=== PATIENT | male | born 1950 | race Caucasian/White ===

== ENCOUNTER → 2022-10-07 | Day surgery (SDC) | payer MEDICARE ==
[2022-10-01 11:07] VITALS: BMI 40.3
[~2022-10-07] MED LIST: BALANCED SALT IRRIG SOLN COMB2 15 ML IRRIG.SOLN INTRAOCULA ONE; EPINEPHrine (PF) 0.3 ML in BALANCED SALT IRRIG SOLN COMB2 500 ML IRRIGATION ONE; HYALURONATE SODIUM INTRAOCULAR 1 EACH SYRINGE (12MG/ML) INTRAOCULA ONE; LACTATED RINGERS 1,000 ML IV SCH; LIDOCAINE 1% (PF) 10MG/ML VIAL MISCELLANE ONE; MIDAZOLAM 2 MG/2 ML VIAL ONE; MOXIFLOXACIN HCL 0.5% DROPS 3 ML BTL OP PRN; TETRACAINE 0.5% OPHTH (PF) DROPS 4 ML BTL OP PRN; TIMOLOL 0.5% OPHTH DROPS 5 ML BTL OP PRN; fentaNYL (PF) 50 MCG/ML 2 ML AMP ONE
[2022-10-07] MEDS: CYCLOPENTOLATE 1% OPHTH SOLN 2 ML BTL OP PRN ×3 (06:55→07:07)
[2022-10-07] MEDS: PHENYLEPHRINE 2.5% OPHTH DRP 2ML OP PRN ×3 (06:58→07:10)
[2022-10-07 06:59] VITALS: TEMP 97
--- NOTE | 2022-10-07 08:06 | P.OP ---
Date of Procedure: 10/07/22 Preoperative Diagnosis: NS & CS & PSC Postoperative Diagnosis: same Procedure(s) Performed: PIOL, OD Implants: MX60E 18.00 Anesthesia: MAC Surgeon: Alfredo Harris Pathology: none sent Condition: stable Disposition: same day Indications for Procedure: blurry vision Operative Findings: no complications
[2022-10-07 08:54] VITALS: BP 156/80; PULSE 72; RESP 18
--- NOTE | 2022-10-07 14:50 | OP ---
OPERATIVE REPORT DATE OF SERVICE : 10/07/2022 PROCEDURES PERFORMED: Phacoemulsification of cataract and intraocular lens implant of the right eye. PREOPERATIVE DIAGNOSES: Nuclear sclerosis, cortical sclerosis, posterior subcapsular cataract. 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 ANESTHESIA: Topical. ESTIMATED BLOOD LOSS: None. SPECIMEN TAKEN: None. DESCRIPTION OF PROCEDURE: After obtaining the appropriate consent, the patient was brought to the operating room. There, he was placed under cardiac monitoring, prepped and draped in the usual sterile manner. He was approached from his right temporal side at the 11 o'clock position. An MVR blade was used to create a paracentesis port. Through this opening, 1% Xylocaine MPF 50:50 mix with balanced salt solution was injected into the anterior chamber. This was followed by stabilization of the anterior chamber with Amvisc. At the 9 o'clock position, a 2.5 mm keratome was used to create a self-sealing corneal flap incision. It was appreciated at this point that the iris was not very taut, and upon entrance of the cystotome below towards the temporal incision. I changed tactics at this point, required a 7 mm Malyugin ring, which was placed on the pupillary sphincter without difficulty. The cystotome was then advanced into the anterior chamber without any problems to begin a continuous tear capsulorrhexis, which was then, otherwise, completed using the capsular forceps. Hydrodissection and hydrodelineation of the lens were accomplished with balanced salt solution. Phacoemulsification lens utilizing phaco chop was accomplished at 17.93 seconds at 13% power. Additional Xylocaine MPF was instilled into the anterior chamber. This was followed by removal of the remaining cortical material under irrigation and aspiration as well as careful polishing of the posterior capsule in the capsule vacuum mode. Amvisc was then used to stabilize the capsular bag, and a [employer] MX60E, 18.0 diopter, posterior chamber intraocular lens was then inserted into the capsular bag without difficulty. The remaining after insertion into the capsular bag, the Malyugin ring was disinserted from the pupillary sphincter and removed from the anterior chamber. This was followed by irrigation and aspiration of all remaining viscoelastic from the anterior chamber as well as in and around the intraocular lens. The eye was then brought to normal intraocular pressure through the paracentesis port with balanced salt solution. All wounds were confirmed watertight. He then received 2 drops of 5% timolol, followed by 2 drops of 0.5% moxifloxacin. He was then lightly patched and shielded in the usual manner. There were no complications from the procedure. He tolerated the procedure well and was returned to outpatient recovery in good condition. MMODL / SHANNANN: [id number] /
== END | disposition home or self-care (01) ==
LOC: OR 06:05
PROVIDERS: ATTEND Ophthalmology
DX: H25.11 Age-related nuclear cataract, right eye (principal); H25.041 Posterior subcapsular polar age-related cataract, right eye; H25.011 Cortical age-related cataract, right eye; Z96.1 Presence of intraocular lens; I10 Essential (primary) hypertension; E78.5 Hyperlipidemia, unspecified; Z87.891 Personal history of nicotine dependence; Z79.899 Other long term (current) drug therapy
CPT/HCPCS: 66984; C1780; J2250; J0171; J3010; J2001

== ENCOUNTER 2023-03-01 11:07 | Inpatient (IN) | payer MEDICARE ==
[2023-03-01] MEDS ORDERED: DILTIAZEM DRIP BOLUS FROM BAG 1 MG SOLN IV ONE (11:28)
[2023-03-01] MEDS ORDERED: SODIUM CHLORIDE 0.9% 500 ML 500 ML IV STA (11:28)
[2023-03-01] MEDS ORDERED: HEPARIN SODIUM 1,000 UN/ML (10ML VL) IV ONE (11:29)
[2023-03-01] MEDS ORDERED: HEPARIN SOD,PORK IN 0.45% NACL 25,000 UNIT in 0.45% NACL 1 250ML.BAG IV SCH (11:30)
[2023-03-01] MEDS ORDERED: SODIUM CHLORIDE 0.9% 1,000 ML IV ONE (11:30)
[2023-03-01] MEDS ORDERED: DILTIAZEM 125 MG in SODIUM CHLORIDE 0.9% 100 ML IV SCH (11:30)
--- NOTE | 2023-03-01 11:33 | ED ---
General Adult HPI - General Chief complaint: Arrhythmia/Palpitations Stated complaint: Abn Stress Test Time Seen by Provider: 03/01/23 11:15 Source: patient, RN notes reviewed, old records reviewed Mode of arrival: ambulatory Limitations: no limitations - History of Present Illness Initial comments: This is a 73-year-old male who presents to the emergency department stating that he was upstairs having a stress test and he went into atrial fibrillation. Patient states he never diagnosis with this before. Patient states he is lightheaded and if she moves around a lot he does get short of breath. Patient states she was recently started on Lasix for fluid on his lungs and has lost 8 pounds recently. Patient states he thinks she's been in and out of A. fib in the past but has never been diagnosed. Patient denies any fever chills or cough. Patient denies any headache. Patient denies any numbness or focal weakness. Patient denies any abdominal pain patient denies any recent nausea vomiting diarrhea. - Related Data Home Medications Medication Instructions Recorded Confirmed Atorvastatin [Lipitor] 10 mg PO HS 10/01/22 03/01/23 Losartan [Cozaar] 25 mg PO DAILY 10/01/22 03/01/23 Tamsulosin [Flomax] 0.4 mg PO HS 10/01/22 03/01/23 atenoloL [Tenormin] 50 mg PO DAILY 10/01/22 03/01/23 Albuterol Sulfate [Ventolin HFA] 2 puff INHALATION RT-QID PRN 03/01/23 03/01/23 Furosemide [Lasix] 40 mg PO DAILY 03/01/23 03/01/23 predniSONE See Taper PO DIRECTED 03/01/23 03/01/23 Allergies Allergy/AdvReac Type Severity Reaction Status Date / Time No Known Allergies Allergy Verified 03/01/23 12:38 Review of Systems ROS Statement: Those systems with pertinent positive or pertinent negative responses have been documented in the HPI. ROS Other: All systems not noted in ROS Statement are negative. Past Medical History Past Medical History: Cancer, Eye Disorder, Hyperlipidemia, Hypertension, Prostate Disorder Additional Past Medical History / Comment(s): RT CATARACTS. SKIN CANCER History of Any Multi-Drug Resistant Organisms: None Reported Past Surgical History: Hernia Repair Additional Past Surgical History / Comment(s): LT CATARACT REMOVED WITH LENS IMPLANTS, REPAIR DETACHED LT RETINA, SKIN CANCER REMOVED FROM NECK, HERNIA X 2, COLONOSCOPY Past Anesthesia/Blood Transfusion Reactions: No Reported Reaction Past Psychological History: No Psychological Hx Reported Smoking Status: Former smoker Past Alcohol Use History: Rare Past Drug Use History: None Reported - Past Family History Sister(s) Family Medical History: Cancer General Exam - General Exam Comments Initial Comments: GENERAL: Patient is well-developed and well-nourished. Patient is nontoxic and well- hydrated and is mild distress. ENT: Neck is soft and supple. No significant lymphadenopathy is noted. Oropharynx is clear. Moist mucous membranes. Neck has full range of motion without eliciting any pain. EYES: The sclera were anicteric and conjunctiva were pink and moist. Extraocular movements were intact and pupils were equal round and reactive to light. Eyelids were unremarkable. PULMONARY: Unlabored respirations. Good breath sounds bilaterally. No audible rales rhonchi or wheezing was noted. CARDIOVASCULAR: Patient is tachycardic at about 140 beats a minute and it is a regular ABDOMEN: Soft and nontender with normal bowel sounds. SKIN: Skin is clear with no lesions or rashes and otherwise unremarkable. NEUROLOGIC: Patient is alert and oriented x3. Cranial nerves II through XII are grossly intact. Motor and sensory are also intact. Normal speech, volume and content. Symmetrical smile. MUSCULOSKELETAL: Normal extremities with adequate strength and full range of motion. No lower extremity swelling or edema. No calf tenderness. LYMPHATICS: No significant lymphadenopathy is noted PSYCHIATRIC: Normal psychiatric evaluation. Limitations: no limitations Course Vital Signs 03/01/23 03/01/23 03/01/23 11:08 11:18 12:15 Temperature 97.7 F Pulse Rate 60 142 H 120 H Respiratory 20 13 Rate Blood Pressure 98/63 98/77 O2 Sat by Pulse 94 L 94 L Oximetry Medical Decision Making - Medical Decision Making EKG is interpreted by myself. EKG shows atrial fibrillation with rapid ventricular response at 130 bpm QRS is 91 QT interval is 281 QTC is 362. Patient's EKG shows no ST segment elevation or depression. Was pt. sent in by a medical professional or institution (, PA, SALES SUPPORT TECHNICIAN, urgent care, hospital, or half-way...) When possible be specific @ -Dr. Dan sent the patient in Did you speak to anyone other than the patient for history (EMS, parent, family, police, friend...)? What history was obtained from this source @ -No Did you review nursing and triage notes (agree or disagree)? Why? @ -I reviewed and agree with nursing and triage notes Were old charts reviewed (outside hosp., previous admission, EMS record, old EKG, old radiological studies, urgent care reports/EKG's, half-way records)? Report findings @ -I reviewed prior charts in prior laboratory on this patient Differential Diagnosis (chest pain, altered mental status, abdominal pain women, abdominal pain men, vaginal bleeding, weakness, fever, dyspnea, syncope, headache, dizziness, GI bleed, back pain, seizure, CVA, palpatations, mental health, musculoskeletal)? @ -Differential Palpitations Ventricular arrhythmias, atrial arrhythmias, myocardial infarction, anemia, thyrotoxicosis, electrolyte imbalance, hypokalemia, pulmonary embolism, pulmonary disease, drugs, alcohol, anxiety, stress.... This is not meant to be an all-inclusive list. EKG interpreted by me (3pts min.). @ -As above X-rays interpreted by me (1pt min.). @ -Chest x-ray shows no acute abnormality CT interpreted by me (1pt min.). @ -None done U/S interpreted by me (1pt. min.). @ -None done What testing was considered but not performed or refused? (CT, X-rays, U/S, labs)? Why? @ -None What meds were considered but not given or refused? Why? @ -None Did you discuss the management of the patient with other professionals (professionals i.e. , PA, SALES SUPPORT TECHNICIAN, lab, RT, psych nurse, director social service, asset administrator, teacher, event security officer, case specialist)? Give summary @ -I spoke with Dr. Tran he agreed to admit the patient I admitted the patient and wrote admitting orders Was smoking cessation discussed for >3mins.? @ -No Was critical care preformed (if so, how long)? @ -35 minutes Were there social determinants of health that impacted care today? How? (Homelessness, low income, unemployed, alcoholism, drug addiction, transporta tion, low edu. Level, literacy, decrease access to med. care, assisted, rehab)? @ -No Was there de-escalation of care discussed even if they declined (Discuss DNR or withdrawal of care, Hospice)? DNR status @ -No What co-morbidities impacted this encounter? (DM, HTN, Smoking, COPD, CAD, Cancer, CVA, ARF, Chemo, Hep., AIDS, mental health diagnosis, sleep apnea, morbid obesity)? @ -None Was patient admitted / discharged? Hospital course, mention meds given and route, prescriptions, significant lab abnormalities, going to OR and other pertinent info. @ -Patient was started on Cardizem after Cardizem bolus and then started on heparin. Patient's heart rate came down around 110. Patient was feeling much better patient will be admitted to Dr. Tran and cardiology will be consulted. Undiagnosed new problem with uncertain prognosis? @ -No Drug Therapy requiring intensive monitoring for toxicity (Heparin, Nitro, Insulin, Cardizem)? @ -No Were any procedures done? @ -No Diagnosis/symptom? @ -A. fib with rapid ventricular response Acute, or Chronic, or Acute on Chronic? @ -Acute Uncomplicated (without systemic symptoms) or Complicated (systemic symptoms)? @ -Complicated Side effects of treatment? @ -No Exacerbation, Progression, or Severe Exacerbation? @ -No Poses a threat to life or bodily function? How? (Chest pain, [place], [place], pneumonia, PE, COPD, DKA, ARF, appy, cholecystitis, CVA, Diverticulitis, Homicidal, Suicidal, threat to staff... and all critical care pts) @ -Yes this can lead to poor perfusion and an organ dysfunction - Lab Data Result diagrams: 03/01/23 11:36 03/01/23 11:36 Lab Results 03/01/23 03/01/23 03/01/23 Range/Units 11:36 11:36 11:36 WBC 14.1 H (3.8-10.6) k/uL RBC 5.51 (4.30-5.90) m/uL Hgb 17.0 (13.0-17.5) gm/dL Hct 53.3 H (39.0-53.0) % MCV 96.8 (80.0-100.0) fL MCH 30.9 (25.0-35.0) pg MCHC 32.0 (31.0-37.0) g/dL RDW 12.5 (11.5-15.5) % Plt Count 227 (150-450) k/uL MPV 8.3 Neutrophils % 94 % Lymphocytes % 4 % Monocytes % 2 % Eosinophils % 0 % Basophils % 0 % Neutrophils # 13.1 H (1.3-7.7) k/uL Lymphocytes # 0.6 L (1.0-4.8) k/uL Monocytes # 0.2 (0-1.0) k/uL Eosinophils # 0.0 (0-0.7) k/uL Basophils # 0.0 (0-0.2) k/uL PT 10.8 (10.0-12.5) sec INR 1.0 (<1.2) APTT 22.4 (22.0-30.0) sec Sodium 140 (137-145) mmol/L Potassium 4.8 (3.5-5.1) mmol/L Chloride 103 (98-107) mmol/L Carbon Dioxide 27 (22-30) mmol/L Anion Gap 10 mmol/L BUN 47 H (9-20) mg/dL Creatinine 1.18 (0.66-1.25) mg/dL Est GFR (CKD-EPI)AfAm 71 (>60 ml/min/1.73 sqM) Est GFR (CKD-EPI)NonAf 61 (>60 ml/min/1.73 sqM) Glucose 148 H (74-99) mg/dL Calcium 9.6 (8.4-10.2) mg/dL Magnesium 1.8 (1.6-2.3) mg/dL Total Bilirubin 0.6 (0.2-1.3) mg/dL AST 28 (17-59) U/L ALT 44 (4-49) U/L Alkaline Phosphatase 66 (38-126) U/L Troponin I (0.000-0.034) ng/mL NT-Pro-B Natriuret Pep 363 pg/mL Total Protein 6.7 (6.3-8.2) g/dL Albumin 4.1 (3.5-5.0) g/dL TSH 1.530 (0.465-4.680) mIU/L Urine Opiates Screen (NotDetected) Ur Oxycodone Screen (NotDetected) Urine Methadone Screen (NotDetected) Ur Barbiturates Screen (NotDetected) U Tricyclic Antidepress (NotDetected) Ur Phencyclidine Scrn (NotDetected) Ur Amphetamines Screen (NotDetected) U Methamphetamines Scrn (NotDetected) U Benzodiazepines Scrn (NotDetected) Urine Cocaine Screen (NotDetected) U Marijuana (THC) Screen (NotDetected) 03/01/23 03/01/23 Range/Units 11:36 11:36 WBC (3.8-10.6) k/uL RBC (4.30-5.90) m/uL Hgb (13.0-17.5) gm/dL Hct (39.0-53.0) % MCV (80.0-100.0) fL MCH (25.0-35.0) pg MCHC (31.0-37.0) g/dL RDW (11.5-15.5) % Plt Count (150-450) k/uL MPV Neutrophils % % Lymphocytes % % Monocytes % % Eosinophils % % Basophils % % Neutrophils # (1.3-7.7) k/uL Lymphocytes # (1.0-4.8) k/uL Monocytes # (0-1.0) k/uL Eosinophils # (0-0.7) k/uL Basophils # (0-0.2) k/uL PT (10.0-12.5) sec INR (<1.2) APTT (22.0-30.0) sec Sodium (137-145) mmol/L Potassium (3.5-5.1) mmol/L Chloride (98-107) mmol/L Carbon Dioxide (22-30) mmol/L Anion Gap mmol/L BUN (9-20) mg/dL Creatinine (0.66-1.25) mg/dL Est GFR (CKD-EPI)AfAm (>60 ml/min/1.73 sqM) Est GFR (CKD-EPI)NonAf (>60 ml/min/1.73 sqM) Glucose (74-99) mg/dL Calcium (8.4-10.2) mg/dL Magnesium (1.6-2.3) mg/dL Total Bilirubin (0.2-1.3) mg/dL AST (17-59) U/L ALT (4-49) U/L Alkaline Phosphatase (38-126) U/L Troponin I <0.012 (0.000-0.034) ng/mL NT-Pro-B Natriuret Pep pg/mL Total Protein (6.3-8.2) g/dL Albumin (3.5-5.0) g/dL TSH (0.465-4.680) mIU/L Urine Opiates Screen Not Detected (NotDetected) Ur Oxycodone Screen Not Detected (NotDetected) Urine Methadone Screen Not Detected (NotDetected) Ur Barbiturates Screen Not Detected (NotDetected) U Tricyclic Antidepress Not Detected (NotDetected) Ur Phencyclidine Scrn Not Detected (NotDetected) Ur Amphetamines Screen Not Detected (NotDetected) U Methamphetamines Scrn Not Detected (NotDetected) U Benzodiazepines Scrn Not Detected (NotDetected) Urine Cocaine Screen Not Detected (NotDetected) U Marijuana (THC) Screen Not Detected (NotDetected) Critical Care Time Critical Care Time: Yes Total Critical Care Time: 35 Disposition Clinical Impression: Atrial fibrillation with rapid ventricular response Disposition: ADMITTED IP TO THIS HOSP Referrals: Jose Luis Mix DO [Primary Care Provider] - 1-2 days Time of Disposition: 13:07
[2023-03-01 12:05] LABS: Basophils % (A) 0 %; Eosinophils % (A) 0 %; HCT 53.3 % (39.0-53.0); Lymphocytes # (A) 0.6 k/uL (1.0-4.8); Lymphocytes % (A) 4 %; MCH 30.9 pg (25.0-35.0); MCV 96.8 fL (80.0-100.0); Mean Platelet Volume 8.3; Monocytes # (A) 0.2 k/uL (0-1.0); Monocytes % (A) 2 %; Neutrophils # (A) 13.1 k/uL (1.3-7.7); Neutrophils % (A) 94 %; Platelet Count 227 k/uL (150-450); RBC 5.51 m/uL (4.30-5.90); RDW 12.5 % (11.5-15.5); WBC 14.1 k/uL (3.8-10.6)
--- NOTE | 2023-03-01 12:05 | XR ---
EXAMINATION TYPE: XR chest 2V DATE OF EXAM: 03/01/2023 COMPARISON: None HISTORY: 73-year-old male with dysrhythmia, abnormal stress test TECHNIQUE: Frontal and lateral views FINDINGS: Heart upper limits of normal in size. Hyperinflation. Focal lower lung densities likely relates to ov erlying soft tissue. Otherwise, no consolidation or pleural effusion. IMPRESSION: Cardiomegaly and COPD. Lower lung opacities likely related to overlying soft tissue. Otherwise, no de finite acute process.
[2023-03-01 12:21] LABS: ALT 44 U/L (4-49); AST 28 U/L (17-59); African American GFR (CKD) 71 (>60 ml/min/1.73 sqM); Albumin 4.1 g/dL (3.5-5.0); Alkaline Phosphatase 66 U/L (38-126); Anion Gap 10 mmol/L; Blood Urea Nitrogen 47 mg/dL (9-20); Calcium 9.6 mg/dL (8.4-10.2); Carbon Dioxide 27 mmol/L (22-30); Chloride 103 mmol/L (98-107); Glucose 148 mg/dL (74-99); Magnesium 1.8 mg/dL (1.6-2.3); Non-African American GFR(CKD) 61 (>60 ml/min/1.73 sqM); Potassium 4.8 mmol/L (3.5-5.1); Sodium 140 mmol/L (137-145); Total Bilirubin 0.6 mg/dL (0.2-1.3); Total Protein 6.7 g/dL (6.3-8.2)
[2023-03-01 12:24] LABS: Partial Thromboplastin Time 22.4 sec (22.0-30.0); Prothrombin Time 10.8 sec (10.0-12.5)
[2023-03-01 12:28] LABS: NT-Pro-B-Type Natriuretic Pept 363 pg/mL
[2023-03-01 12:33] LABS: Amphetamine Screen,Urine Not Detected (NotDetected); Barbiturate Screen,Urine Not Detected (NotDetected); Benzodiazepines Screen,Urine Not Detected (NotDetected); Cocaine Screen,Urine Not Detected (NotDetected); Methadone Screen, Urine Not Detected (NotDetected); Opiate Screen,Urine Not Detected (NotDetected); Oxycodone Screen, Urine Not Detected (NotDetected); Phencyclidine Screen,Urine Not Detected (NotDetected); Tricyclic Antidepressant,Urine Not Detected (NotDetected); Urn Cannabinoid Scrn Not Detected (NotDetected)
[2023-03-01] MEDS ORDERED: NITROGLYCERIN SL TABS 0.4 MG TAB SUBLINGUAL PRN (13:07)
[2023-03-01] MEDS ORDERED: ALBUTEROL HFA INHALER INHALATION PRN (18:27)
[2023-03-01 19:20] LABS: Partial Thromboplastin Time 35.7 sec (22.0-30.0)
--- NOTE | 2023-03-01 20:04 | CT ---
EXAMINATION TYPE: CT chest wo con CT DLP: 812.2 mGycm, Automated exposure control for dose reduction was used. DATE OF EXAM: 03/01/2023 7:11 PM COMPARISON: Chest radiograph from same day. . CLINICAL INDICATION:Male, 73 years old with history of cap; PHH, Abnormal stress test. Pt in A-fib. TECHNIQUE: Multiple axial images were obtained through the chest. Sagittal and coronal reformats were created for review. Contrast used: mL of (None if empty) Oral contrast used: (None if empty) FINDINGS: LUNGS/ PLEURA: No focal consolidation, pneumothorax or pleural effusion. AIRWAY: Patent and unremarkable. HEART: Size within normal limits. Mild calcifications of the coronary arteries. MEDIASTINUM: No gross evidence of adenopathy. VASCULATURE: No aortic aneurysm. MUSCULOSKELETAL: No acute osseous abnormalities SOFT TISSUES/LYMPH NODES: Unremarkable. LOWER NECK: No significant findings. UPPER ABDOMEN: No significant findings. IMPRESSION: 1. No evidence for acute thoracic process. 2. Mild coronary artery atherosclerosis. Follow up recommendations for incidental pulmonary nodules, if there are any, are per [employer] [employer] or [place]. https://radiopaedia.org/articles/cjmhxomwul-atigema-wsdmhpjyg-hbogor-[email or web address]-[email or web address]?lang=us
[2023-03-01] MEDS: ATORVASTATIN 10 MG TAB PO SCH (22:00)
[2023-03-01] MEDS: TAMSULOSIN 0.4 MG CAP.ER.24H PO SCH (22:00)
[2023-03-01] MEDS: IPRATROPIUM-ALBUTEROL 3 ML NEB INHALATION SCH (22:13)
[2023-03-01] MEDS ORDERED: ARTIFICIAL TEARS-HYPROMELLOSE DROPS 15 ML BTL BOTH EYES PRN (22:39)
--- NOTE | 2023-03-02 01:52 | HP ---
HISTORY AND PHYSICAL HISTORY OF PRESENT ILLNESS: This is a 73-year-old in the emergency room having assessed for atrial fibrillation. He is lightheaded, moves around a lot, he is short of breath. He is given Lasix for fluid in his lungs. He lost 3 pounds recently. He has been in and out of atrial fibrillation in the past. No fever or chills. No headaches. No numbness or focal weakness. No abdominal pain. No nausea, vomiting, or diarrhea. MEDICATIONS: 1. Lipitor 10 daily. 2. Cozaar 25 daily. 3. Flomax 0.4 daily. 4. Advair HFA 2 puffs p.r.n. 5. Tenormin 50 daily. 6. Lasix 40 daily. 7. Prednisone as tolerated. ALLERGIES: Negative. PAST MEDICAL HISTORY: Cancer, eye disorder, hypertension, dyslipidemia, and prostate disorder. PAST SURGICAL HISTORY: Hernia repair, cataract removed, skin cancer removed. FAMILY HISTORY: Sister cancer. PHYSICAL EXAMINATION: HEENT: Normocephalic, atraumatic. Ophthalmologic, pupils equal, round, and react to light. LUNGS: Decreased breath sounds x4. HEMATOLOGY: Negative for Homans. PSYCH: Fair mood and affect. NEUROLOGIC: Alert and oriented x3. ABDOMEN: Soft, nontender. SKIN: Warm and dry. VITAL SIGNS: Reviewed. Blood pressure 98/63, temp 97.7, pulse 60, respiratory rate 18 to 20, and O2 94. LYMPHATICS: No lymphadenopathy. ASSESSMENT: Atrial fibrillation, RVR, probable COPD, hypertension, BPH, dyslipidemia. Prognosis guarded. Please see further orders. Cardizem bolus, heparin drip. Wait for Cardiology consult. Further workup in place. Leukocytosis, possible pneumonia. He has secondary polycythemia, will work that up also. Prognosis guarded. MMODL / IJN: [id number] /
[2023-03-02 05:07] LABS: Basophils # (A) 0.1 k/uL (0-0.2); Basophils % (A) 0 %; Eosinophils # (A) 0.1 k/uL (0-0.7); Eosinophils % (A) 0 %; HCT 50.2 % (39.0-53.0); HGB 16.4 gm/dL (13.0-17.5); Lymphocytes # (A) 2.1 k/uL (1.0-4.8); Lymphocytes % (A) 16 %; MCH 31.7 pg (25.0-35.0); MCHC 32.6 g/dL (31.0-37.0); MCV 97.1 fL (80.0-100.0); Mean Platelet Volume 8.6; Monocytes # (A) 0.7 k/uL (0-1.0); Monocytes % (A) 5 %; Neutrophils # (A) 9.9 k/uL (1.3-7.7); Neutrophils % (A) 77 %; Platelet Count 184 k/uL (150-450); RBC 5.17 m/uL (4.30-5.90); RDW 12.6 % (11.5-15.5); WBC 12.8 k/uL (3.8-10.6)
[2023-03-02 05:18] LABS: ALT 36 U/L (4-49); AST 21 U/L (17-59); African American GFR (CKD) 87 (>60 ml/min/1.73 sqM); Albumin 3.7 g/dL (3.5-5.0); Alkaline Phosphatase 69 U/L (38-126); Anion Gap 6 mmol/L; Blood Urea Nitrogen 38 mg/dL (9-20); Calcium 8.9 mg/dL (8.4-10.2); Carbon Dioxide 27 mmol/L (22-30); Chloride 104 mmol/L (98-107); Glucose 109 mg/dL (74-99); Non-African American GFR(CKD) 75 (>60 ml/min/1.73 sqM); Potassium 4.3 mmol/L (3.5-5.1); Sodium 137 mmol/L (137-145); Total Bilirubin 0.7 mg/dL (0.2-1.3); Total Protein 6.1 g/dL (6.3-8.2)
[2023-03-02] MEDS: IPRATROPIUM-ALBUTEROL 3 ML NEB INHALATION SCH ×4 (08:16→21:36)
[2023-03-02] MEDS ORDERED: ASPIRIN 325 MG TAB PO SCH (09:00)
[2023-03-02] MEDS ORDERED: APIXABAN 5 MG TAB PO SCH (09:00)
[2023-03-02] MEDS ORDERED: atenoloL 50 MG TAB PO SCH (09:00)
[2023-03-02] MEDS: LOSARTAN 25 MG TAB PO SCH (09:27)
[2023-03-02] MEDS: METOPROLOL TARTRATE 50 MG TAB PO SCH ×2 (09:28→20:34)
[2023-03-02] MEDS ORDERED: NITROGLYCERIN SL TABS 0.4 MG TAB SUBLINGUAL PRN (10:19)
[2023-03-02] MEDS ORDERED: ALPRAZolam 0.5 MG TAB PO PRN (10:19)
[2023-03-02] MEDS ORDERED: ALPRAZolam 0.25 MG TAB PO PRN (10:19)
[2023-03-02 10:39] LABS: Chol/HDL Ratio 3.31 Ratio; LDL Cholesterol,Calculated 98.4 mg/dL (0.0-131.0)
--- NOTE | 2023-03-02 13:25 | P.CRDCN ---
History of Present Illness Consult date: 03/02/23 Consult reason: atrial fibrillation (w RVR) History of present illness: History of present illness: This is a 73-year-old male with past medical history of hypertension, hyperlipidemia, history of tobacco use quit in June 2022. 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 fib with RVR. Patient presented to the emergency center for a stress test and after it was completed, patient went into atrial fibrillation. He has no previous history of atrial fibrillation. He was initially lightheaded and short of breath was recently started on Lasix with loss of 8 pounds. Patient states he has not been feeling will with increased shortness of breath since [place]. For the past year he has not been able to walk any long distance and felt palpatations. He states that even now when he lays down he feels palpitations in his chest and shortness of breath. He states he has a [facility] with atrial fibrillation and ablations. Patient has started on Cardizem bolus followed by drip and heparin drip, 1 L of IV fluids and resumed on his home cardiac medications to start today. Cardizem drip is currently at 5 mg per hour. Discussed anticoagulation options with the patient and he is agreeable to start eliquis. However, following that discussion, patient's EF came back low and he will be scheduled for cardiac catheterization tomorrow morning with Dr. Barajas. Patient would like to follow in the office with Dr. Dan as he met him yesterday during stress testing. Patient has a history of smoking and quit a number of years ago. Rare alcohol use. He denies any marijuana or illicit drug use. Discussed obstructive sleep apnea and patient will need outpatient workup. EKG atrial fibrillation with ventricular rate of 138. Repeat atrial fibrillation at ventricular rate of 81. Chest x-ray: Cardiomegaly and COPD. Lower lung opacities likely related to over lying soft tissue. No acute process. CT of the chest: No evidence of acute thoracic process. Mild coronary artery atherosclerosis. Pulmonary nodules. WBC 12.8, hemoglobin 16.4, platelet count 184. INR 1. D-dimer 0.57. A 2 lites are normal. BUN 38 creatinine 1. Troponin negative 3. ProBNP 363. TSH 1.53. Urine drug screen negative. Home cardiac medications: Atenolol 59 g daily, atorvastatin 10 mg at bedtime, Lasix 40 mg daily, losartan 25 mg daily. Review Of Systems: At the time of my exam: CONSTITUTIONAL: Denies fever or chills. CARDIOVASCULAR: Denies chest pain, + shortness of breath, + MANUEL, no orthopnea, PND or palpitations. RESPIRATORY: Denies cough. GASTROINTESTINAL: Denies abdominal pain, diarrhea, constipation, nausea or vomiting. MUSCULOSKELETAL: Denies myalgias. NEUROLOGIC: Denies numbness, tingling or weakness. ENDOCRINE: Denies fatigue, weight change, polydipsia or polyurina. GENITOURINARY: Denies burning, hematuria or urgency with micturation. HEMATOLOGIC: Denies history of anemia or bleeding. Physical examination: Gen: This is a 73-year-old male resting in bed, no acute distress VS: reviewed HEENT: Head is atraumatic, normocephalic. Pupils equal, round. Sclerae is anicteric. NECK: Supple. No JVD. LUNGS: Clear to auscultation. No wheezes or rhonchi. No intercostal retractions. HEART: Regular rate and rhythm. No murmur. ABDOMEN: Soft No tenderness. EXTREMITIES: No pedal edema. No calf tenderness. NEUROLOGICAL: Patient is awake, alert and oriented x3. 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 Nurse practitioner note has been reviewed, I agree with documented findings and plan of care. Patient was seen and examined. Past Medical History Past Medical History: Cancer, Eye Disorder, Hyperlipidemia, Hypertension, Prostate Disorder Additional Past Medical History / Comment(s): RT CATARACTS. SKIN CANCER History of Any Multi-Drug Resistant Organisms: None Reported Past Surgical History: Hernia Repair Additional Past Surgical History / Comment(s): LT CATARACT REMOVED WITH LENS IMPLANTS, REPAIR DETACHED LT RETINA, SKIN CANCER REMOVED FROM NECK, HERNIA X 2, COLONOSCOPY Past Anesthesia/Blood Transfusion Reactions: No Reported Reaction Past Psychological History: No Psychological Hx Reported Smoking Status: Former smoker Past Alcohol Use History: Rare Additional Past Alcohol Use History / Comment(s): QUIT SMOKING JUNE 2022-SMOKING OFF AND ON SINCE AGE 16 Past Drug Use History: None Reported - Past Family History Sister(s) Family Medical History: Cancer Medications and Allergies Home Medications Medication Instructions Recorded Confirmed Type Atorvastatin [Lipitor] 10 mg PO HS 10/01/22 03/01/23 History Losartan [Cozaar] 25 mg PO DAILY 10/01/22 03/01/23 History Tamsulosin [Flomax] 0.4 mg PO HS 10/01/22 03/01/23 History atenoloL [Tenormin] 50 mg PO DAILY 10/01/22 03/01/23 History Albuterol Sulfate [Ventolin HFA] 2 puff INHALATION RT-QID PRN 03/01/23 03/01/23 History Furosemide [Lasix] 40 mg PO DAILY 03/01/23 03/01/23 History predniSONE See Taper PO DIRECTED 03/01/23 03/01/23 History Apixaban [Eliquis] 5 mg PO BID #60 tab 03/02/23 Rx Allergies Allergy/AdvReac Type Severity Reaction Status Date / Time No Known Allergies Allergy Verified 03/01/23 12:38 Physical Exam Vitals: Vital Signs Temp Pulse Pulse Resp BP BP Pulse Ox 03/02/23 04:21 97.5 F L 66 16 122/79 94 L 03/02/23 00:07 97.6 F 69 16 125/77 95 03/01/23 20:46 97.6 F 74 16 116/66 94 L 03/01/23 19:00 90 18 109/79 93 L 03/01/23 18:00 90 17 109/79 94 L 03/01/23 17:00 86 13 106/77 93 L 03/01/23 16:00 89 18 106/77 94 L 03/01/23 14:00 94 20 105/71 94 L 03/01/23 13:00 105 H 18 121/77 94 L 03/01/23 12:15 120 H 13 98/77 94 L 03/01/23 11:18 142 H 03/01/23 11:08 97.7 F 60 20 98/63 94 L Intake and Output 0103/02/23 03/02/23 22:59 06:59 14:59 Intake Total 104.823 Balance 104.823 Intake: Intake, IV Titration 104.823 Amount Heparin Sod,Pork in 0.45% 104.823 NaCl 25,000 unit In 0.45 % NaCl 1 250ml.bag @ 8. 818 UNITS/KG/HR 9.999 mls /hr IV .Q24H [facility] Rx#: [id number] Other: # Voids 0 1 Weight 113.398 kg 112.6 kg Results 03/02/23 04:33 03/02/23 04:33 Cardiac Enzymes 03/01/23 03/01/23 03/01/23 Range/Units 11:36 11:36 14:27 AST 28 (17-59) U/L Troponin I <0.012 0.016 (0.000-0.034) ng/mL 03/01/23 03/02/23 Range/Units 17:00 04:33 AST 21 (17-59) U/L Troponin I 0.018 (0.000-0.034) ng/mL Coagulation 03/01/23 03/01/23 03/02/23 Range/Units 11:36 18:40 04:33 PT 10.8 (10.0-12.5) sec APTT 22.4 35.7 H 47.4 H (22.0-30.0) sec CBC 03/01/23 03/02/23 Range/Units 11:36 04:33 WBC 14.1 H 12.8 H (3.8-10.6) k/uL RBC 5.51 5.17 (4.30-5.90) m/uL Hgb 17.0 16.4 (13.0-17.5) gm/dL Hct 53.3 H 50.2 (39.0-53.0) % Plt Count 227 184 (150-450) k/uL Comprehensive Metabolic Panel 03/01/23 03/02/23 Range/Units 11:36 04:33 Sodium 140 137 (137-145) mmol/L Potassium 4.8 4.3 (3.5-5.1) mmol/L Chloride 103 104 (98-107) mmol/L Carbon Dioxide 27 27 (22-30) mmol/L BUN 47 H 38 H (9-20) mg/dL Creatinine 1.18 1.00 (0.66-1.25) mg/dL Glucose 148 H 109 H (74-99) mg/dL Calcium 9.6 8.9 (8.4-10.2) mg/dL AST 28 21 (17-59) U/L ALT 44 36 (4-49) U/L Alkaline Phosphatase 66 69 (38-126) U/L Total Protein 6.7 6.1 L (6.3-8.2) g/dL Albumin 4.1 3.7 (3.5-5.0) g/dL Current Medications Generic Name Dose Route Start Last Admin Trade Name Freq PRN Reason Stop Dose Admin Albuterol Sulfate 2 puff 03/01/23 18:27 Albuterol Hfa Inhaler INHALATION RT-QID PRN Shortness Of Breath Albuterol/Ipratropium 3 ml 03/01/23 20:00 03/01/23 22:13 Ipratropium-Albuterol 3 Ml Neb INHALATION Not Given RT-QID [facility] Artificial Tears 1 drops 03/01/23 22:39 Artificial Tears-Hypromellose Drops 15 Ml Btl BOTH EYES QID PRN Dry Eye(s) Aspirin 325 mg 03/02/23 09:00 Aspirin 325 Mg Tab PO DAILY [facility] Atenolol 50 mg 03/02/23 09:00 Atenolol 50 Mg Tab PO DAILY [facility] Atorvastatin Calcium 10 mg 03/01/23 21:00 03/01/23 22:00 Atorvastatin 10 Mg Tab PO 10 mg HS [facility] Administration Diltiazem HCl 125 mg/ Sodium 125 mls @ 5 mls/hr 03/01/23 11:30 03/01/23 11:56 Chloride IV 5 mg/hr .Q24H [facility] 5 mls/hr Administration 5 MG/HR Heparin Sodium/Sodium Chloride 250 mls @ 9.999 mls/hr 03/01/23 11:30 03/01/23 22:25 25,000 unit/ Sodium Chloride IV 10.818 units/kg/hr .Q24H [facility] 12.267 mls/hr Titration Protocol 8.818 UNITS/KG/HR Ceftriaxone Sodium 1 gm/ 50 mls @ 100 mls/hr 03/01/23 19:00 03/02/23 00:12 Sodium Chloride IVPB 100 mls/hr Q24HR [facility] Administration Protocol Losartan Potassium 25 mg 03/02/23 09:00 Losartan 25 Mg Tab PO DAILY [facility] Nitroglycerin 0.4 mg 03/01/23 13:07 Nitroglycerin Sl Tabs 0.4 Mg Tab SUBLINGUAL Q5M PRN Chest Pain Tamsulosin HCl 0.4 mg 03/01/23 21:00 03/01/23 22:00 Tamsulosin 0.4 Mg Cap.Er.24h PO 0.4 mg HS [facility] Administration Intake and Output 03/01/23 03/02/23 03/02/23 22:59 06:59 14:59 Intake Total 104.823 Balance 104.823 Intake: Intake, IV Titration 104.823 Amount Heparin Sod,Pork in 0.45% 104.823 NaCl 25,000 unit In 0.45 % NaCl 1 250ml.bag @ 8. 818 UNITS/KG/HR 9.999 mls /hr IV .Q24H [facility] Rx#: [id number] Other: # Voids 0 1 Weight 113.398 kg 112.6 kg 03/02/23 04:33 03/02/23 04:33
[2023-03-02] MEDS: ATORVASTATIN 10 MG TAB PO SCH (20:34)
[2023-03-02] MEDS: TAMSULOSIN 0.4 MG CAP.ER.24H PO SCH (20:34)
--- NOTE | 2023-03-02 22:28 | P.CONS ---
History of Present Illness - Reason for Consult Consult date: 03/02/23 Sepsis Requesting physician: Fortino Tran - Chief Complaint Lightheaded and short of breath x 1 day - History of Present Illness Patient is a 73-year old male apparently seem to have a problem with the URI/lower chest infection for the patient has been evaluated by his primary care physician and has been given some intramuscular antibiotic followed by a 5-day course of oral antibiotic patient medically clear about the name and has been on a tapering course of prednisone, patient also have a history of hypertension hyperlipidemia and apparently patient was undergoing stress test after completion of the test the patient went into atrial fibrillation patient felt lightheaded and short of breath for the patient was advised to go to the ER patient denies having any fever or any chills prior to presentation to the hospital and no fever was noticed on arrival to the ER the patient was tachycardic but not hypotensive or hypoxic patient did have a elevated white count of 14.1 with a left shift creatinine was normal liver enzymes are normal urine drug screen was negative patient did have a chest x-ray cardiomegaly COPD lower lung opacity likely related to ongoing soft tissue otherwise no acute process subsequently patient did have a CT of the chest no evidence for acute thoracic process mild coronary arteries atherosclerosis patient was started on c eftriaxone empirically infectious was consulted for possible sepsis/leukocytosis. Patient currently denies any headache or URI symptoms the patient breathing has improved denies any chest pain did have occasional dry cough no nausea no vomiting no abdominal pain no diarrhea no urinary symptoms Review of Systems Positive point and negatives has been mentioned in the HPI, complete review of systems was performed and all other systems are negative Past Medical History Past Medical History: Cancer, Eye Disorder, Hyperlipidemia, Hypertension, Prostate Disorder Additional Past Medical History / Comment(s): RT CATARACTS. SKIN CANCER History of Any Multi-Drug Resistant Organisms: None Reported Past Surgical History: Hernia Repair Additional Past Surgical History / Comment(s): LT CATARACT REMOVED WITH LENS IMPLANTS, REPAIR DETACHED LT RETINA, SKIN CANCER REMOVED FROM NECK, HERNIA X 2, COLONOSCOPY Past Anesthesia/Blood Transfusion Reactions: No Reported Reaction Past Psychological History: No Psychological Hx Reported Smoking Status: Former smoker Past Alcohol Use History: Rare Additional Past Alcohol Use History / Comment(s): QUIT SMOKING JUNE 2022-SMOKING OFF AND ON SINCE AGE 16 Past Drug Use History: None Reported - Past Family History Sister(s) Family Medical History: Cancer Medications and Allergies Home Medications Medication Instructions Recorded Confirmed Type Losartan [Cozaar] 25 mg PO DAILY 10/01/22 03/01/23 History Tamsulosin [Flomax] 0.4 mg PO HS 10/01/22 03/01/23 History Albuterol Sulfate [Ventolin HFA] 2 puff INHALATION RT-QID PRN 03/01/23 03/01/23 History predniSONE See Taper PO DIRECTED 03/01/23 03/01/23 History Apixaban [Eliquis] 5 mg PO BID #180 tab 03/04/23 Rx Atorvastatin [Lipitor] 40 mg PO HS #90 tablet 03/04/23 Rx Clopidogrel [Plavix] 75 mg PO DAILY #90 tablet 03/04/23 Rx Metoprolol Tartrate [Lopressor] 50 mg PO BID 30 Days #60 tab 03/04/23 Rx Allergies Allergy/AdvReac Type Severity Reaction Status Date / Time No Known Allergies Allergy Verified 03/01/23 12:38 Physical Exam Vitals: Vital Signs Temp Pulse Pulse Resp BP BP Pulse Ox 03/02/23 09:00 98.1 F 82 147/70 92 L 03/02/23 08:26 86 03/02/23 08:16 80 93 L 03/02/23 04:21 97.5 F L 66 16 122/79 94 L 03/02/23 00:07 97.6 F 69 16 125/77 95 03/01/23 20:46 97.6 F 74 16 116/66 94 L 03/01/23 19:00 90 18 109/79 93 L 03/01/23 18:00 90 17 109/79 94 L 03/01/23 17:00 86 13 106/77 93 L 03/01/23 16:00 89 18 106/77 94 L 03/01/23 14:00 94 20 105/71 94 L 03/01/23 13:00 105 H 18 121/77 94 L 03/01/23 12:15 120 H 13 98/77 94 L 03/01/23 11:18 142 H 03/01/23 11:08 97.7 F 60 20 98/63 94 L Intake and Output 03/01/23 03/02/23 03/02/23 22:59 06:59 14:59 Intake Total 104.823 370.927 Balance 104.823 370.927 Intake: Intake, IV Titration 104.823 252.927 Amount Diltiazem 125 mg In 107.75 Sodium Chloride 0.9% 100 ml @ 5 MG/HR 5 mls/hr IV .Q24H [facility] Rx#:[id number] Heparin Sod,Pork in 0.45% 104.823 145.177 NaCl 25,000 unit In 0.45 % NaCl 1 250ml.bag @ 8. 818 UNITS/KG/HR 9.999 mls /hr IV .Q24H [facility] Rx#: [id number] Oral 118 Other: # Voids 0 1 Weight 113.398 kg 112.6 kg GENERAL DESCRIPTION: elderly male lying in bed, no distress. No tachypnea or accessory muscle of respiration use. HEENT: Shows Pallor , no scleral icterus. Oral mucous membrane is dry. No pharyngeal erythema or thrush NECK: Trachea central, no thyromegaly. LUNGS: Unlabored breathing. Clear to auscultation anteriorly. No wheeze or crackle. HEART: S1, S2, regular rate and rhythm. No loud murmur ABDOMEN: Soft, no tenderness , guarding or rigidity, no organomegaly EXTREMITIES: No edema of feet. SKIN: No rash, no masses palpable. NEUROLOGICAL: The patient is awake, alert, oriented x3, mood and affect normal. Results CBC & Chem 7: 03/03/23 07:54 03/04/23 08:10 Labs: Abnormal Lab Results - Last 24 Hours (Table) 03/01/23 03/01/23 03/01/23 Range/Units 11:36 11:36 11:36 WBC 14.1 H (3.8-10.6) k/uL Hct 53.3 H (39.0-53.0) % Neutrophils # 13.1 H (1.3-7.7) k/uL Lymphocytes # 0.6 L (1.0-4.8) k/uL APTT (22.0-30.0) sec BUN 47 H (9-20) mg/dL Glucose 148 H (74-99) mg/dL Hemoglobin A1c 6.7 H (<=6.0) % Total Protein (6.3-8.2) g/dL 03/01/23 03/02/23 03/02/23 Range/Units 18:40 04:33 04:33 WBC 12.8 H (3.8-10.6) k/uL Hct (39.0-53.0) % Neutrophils # 9.9 H (1.3-7.7) k/uL Lymphocytes # (1.0-4.8) k/uL APTT 35.7 H (22.0-30.0) sec BUN 38 H (9-20) mg/dL Glucose 109 H (74-99) mg/dL Hemoglobin A1c (<=6.0) % Total Protein 6.1 L (6.3-8.2) g/dL 03/02/23 Range/Units 04:33 WBC (3.8-10.6) k/uL Hct (39.0-53.0) % Neutrophils # (1.3-7.7) k/uL Lymphocytes # (1.0-4.8) k/uL APTT 47.4 H (22.0-30.0) sec BUN (9-20) mg/dL Glucose (74-99) mg/dL Hemoglobin A1c (<=6.0) % Total Protein (6.3-8.2) g/dL Assessment and Plan (1) Leukocytosis Status: Acute Code(s): D72.829 - ELEVATED WHITE BLOOD CELL COUNT, UNSPECIFIED SNOMED Code(s): 177993294 Plan: 1patient with leukocytosis more likely related to steroid the patient has been out in the outpatient setting for bronchitis prescribed by his primary care physician patient admitted to the hospital with A-fib after the stress test currently with no fever patient did have a chest x-ray followed by CT of the chest that was negative for any pneumonia he does not have any urinary symptoms abdominal soft on clinical examination and no evidence of any cellulitis 2-we will check his inflammatory markers patient CRP and procalcitonin 3-May continue empiric Rocephin while waiting for the workup to be completed We will follow on clinical condition and cultures to further adjust medication if needed Thank you for this consultation we will follow the patient along with you Dictation was produced using [employer] software. please excuse any grammatical, word or spelling errors. Time with Patient: Greater than 30
[2023-03-02] MEDS ORDERED: EMPTY BAG 1 BAG with SODIUM CHLORIDE 0.9% 1,000 ML IV ONE (23:00)
[2023-03-03 05:49] LABS: Glucose,Whole Blood 94 mg/dL (70-110)
[2023-03-03] MEDS: METOPROLOL TARTRATE 50 MG TAB PO SCH ×2 (06:11→20:57)
[2023-03-03] MEDS: LOSARTAN 25 MG TAB PO SCH (06:12)
[2023-03-03] MEDS ORDERED: HEPARIN SODIUM,PORCINE (1 ML) 2,500 UNIT in SODIUM CHLORIDE 0.9% 250 ML IRRIGATION PRN (07:00)
[2023-03-03] MEDS ORDERED: ATORVASTATIN 80 MG TAB PO ONE (07:00)
[2023-03-03] MEDS ORDERED: ASPIRIN 325 MG TAB PO ONE (07:00)
[2023-03-03] MEDS ORDERED: HEPARIN SODIUM,PORCINE 10,000 UNIT in SODIUM CHLORIDE 0.9% 1,000 ML IRRIGATION PRN (07:00)
[2023-03-03] MEDS ORDERED: fentaNYL (PF) 50 MCG/ML 2 ML AMP IVP ONE (08:43)
[2023-03-03] MEDS ORDERED: MIDAZOLAM 2 MG/2 ML VIAL IVP ONE (08:43)
[2023-03-03] MEDS ORDERED: LIDOCAINE 1% INJ 10MG/ML (20 ML MDV) SQ ONE (08:43)
[2023-03-03] MEDS ORDERED: VERAPAMIL SYRINGE (5 MG/10 ML) INTRAARTER ONE ×2 (08:52→11:44)
[2023-03-03] MEDS ORDERED: HEPARIN SODIUM 1,000 UN/ML (10ML VL) IVP ONE ×2 (08:53→11:44)
[2023-03-03] MEDS: IPRATROPIUM-ALBUTEROL 3 ML NEB INHALATION SCH ×4 (08:53→22:17)
[2023-03-03] MEDS ORDERED: IOPAMIDOL-370 100ML BTL INJ ONE ×3 (09:02→12:32)
[2023-03-03] MEDS ORDERED: IV FLUID CONTINUATION 200 ML IV ONE ×2 (09:03→12:29)
[2023-03-03 09:18] LABS: Basophils # (A) 0.1 k/uL (0-0.2); Basophils % (A) 1 %; Eosinophils # (A) 0.1 k/uL (0-0.7); Eosinophils % (A) 1 %; HCT 48.8 % (39.0-53.0); HGB 15.4 gm/dL (13.0-17.5); Lymphocytes # (A) 2.1 k/uL (1.0-4.8); Lymphocytes % (A) 18 %; MCHC 31.6 g/dL (31.0-37.0); MCV 98.3 fL (80.0-100.0); Mean Platelet Volume 8.9; Monocytes # (A) 0.6 k/uL (0-1.0); Monocytes % (A) 5 %; Neutrophils # (A) 8.7 k/uL (1.3-7.7); Neutrophils % (A) 74 %; Platelet Count 190 k/uL (150-450); RBC 4.96 m/uL (4.30-5.90); RDW 12.9 % (11.5-15.5); WBC 11.8 k/uL (3.8-10.6)
[2023-03-03 09:36] LABS: ALT 32 U/L (4-49); AST 21 U/L (17-59); African American GFR (CKD) 75 (>60 ml/min/1.73 sqM); Albumin 3.8 g/dL (3.5-5.0); Alkaline Phosphatase 63 U/L (38-126); Anion Gap 8 mmol/L; Blood Urea Nitrogen 36 mg/dL (9-20); Calcium 9.2 mg/dL (8.4-10.2); Carbon Dioxide 26 mmol/L (22-30); Chloride 104 mmol/L (98-107); Glucose 87 mg/dL (74-99); Non-African American GFR(CKD) 65 (>60 ml/min/1.73 sqM); Potassium 4.7 mmol/L (3.5-5.1); Sodium 138 mmol/L (137-145); Total Bilirubin 0.8 mg/dL (0.2-1.3); Total Protein 6.3 g/dL (6.3-8.2)
[2023-03-03] MEDS: fentaNYL (PF) 50 MCG/ML 2 ML AMP IVP ONE ×2 (11:43→12:32)
[2023-03-03] MEDS ORDERED: CLOPIDOGREL 75 MG TAB PO ONE (11:44)
[2023-03-03] MEDS ORDERED: SODIUM CHLORIDE 0.9% 1,000 ML IV ONE (12:29)
[2023-03-03] MEDS ORDERED: NITROGLYCERIN 1000MCG/10ML SYRINGE INTRACORON ONE (12:43)
[2023-03-03 12:56] LABS: C Reactive Protein <0.5 mg/dL (<1.0)
[2023-03-03] MEDS ORDERED: MAG HYDROX/AL HYDROX/SIMETH 30 ML CUP PO PRN (13:02)
[2023-03-03] MEDS ORDERED: NITROGLYCERIN SL TABS 0.4 MG TAB SUBLINGUAL PRN (13:02)
[2023-03-03] MEDS ORDERED: ZOLPIDEM 5 MG TAB PO PRN (13:02)
[2023-03-03] MEDS ORDERED: ATROPINE SULFATE 0.1 MG/ML 10ML SYRINGE IV PRN (13:02)
[2023-03-03] MEDS ORDERED: RX INFO: IV CONTRAST WAS GIVEN 1 EACH MISC MISCELLANE PRN (13:02)
--- NOTE | 2023-03-03 13:11 | P.CARDCATH ---
Date of Procedure: 03/03/23 Description of Procedure: PERCUTANEOUS TRANSLUMINAL CORONARY ANGIOPLASTY CLINICAL INFORMATION: The patient is a 73-year-old male who presented with dyspnea and palpitations, had an abnormal stress test with episodes of paroxysmal atrial fibrillation and nonsustained ventricular tachycardia. He underwent cardiac catheterization by Dr Barajas was found to have subtotally occluded distal RCA with diffuse disease in the mid segment. He had collaterals from the left system . Recommendations were made regarding angioplasty and stenting. The procedure as well as the risks and the complications were discussed with the patient who was in full understanding and agreement. PROCEDURE: Using the guidewire exchange technique the 6-Finnish sheath in the right radial artery was exchanged to a new 6-Finnish sheath. A 6 Finnish AL 0.75 guiding catheter was introduced into the system. After cannulating the right coronary ostium , a 0.014 whisper J-wire with the help of a finding cross microcatheter was advanced across the lesion and positioned distally. Subsequent to the right was exchanged to a 0.014 BMW J-wire. Following that a 2.0 12 mm Treck balloon was advanced and multiple inflations at 8 atmosphere were done, after removing the balloon a 2.25 x 15 mm Treck is advanced and multiple inflation at 8 parth were done. Subsequently a [employer] venetie ira eye IVUS catheter was introduced and images were obtained. Following that a 2.5 x 23 mm Xience debra point stent was deployed. It was dilated at 16 parth. After removing the balloon 3.0 x 38 mm Xience debra point stent was deployed proximal to the first at 16 parth , another 3.0 x 38 mm Xience debra point was deployed proximal to it at 16 parth. Subsequently a 3.25 x 28 mm Xience debra point was deployed proximally at 16 parth. Repeat IVUS images were obtained. Subsequently a 3.25 x 15 mm NC Treck is advanced and multiple inflations throughout the stented segment at 10 parth were done. After the last inflation, after appropriate wait, the balloon and the guidewire were withdrawn back into the guiding catheter. Images were obtained and repeated. Those images reveal stable successful stenting. At that point, the guiding catheter, the balloon, and guidewire were removed. The sheath was removed. Hemostasis was obtained with the appointment for vascular event. There were no immediate complications. The patient was returned to the room in stable condition. Of note, the patient received 6000 units of heparin as well as Plavix. His ACT was followed. There was no immediate complications. He had no chest discomfort or EKG changes with the inflations RESULTS: Successful stenting of the proximal, mid and distal RCA with reduction of stenosis from 99 % to 0 % with IVUS imaging. RECOMMENDATIONS: The patient will continue on aspirin and clopidogrel without any interruption for at least 6 months in addition to aggressive coronary risks modifications, attempting to maintain an LDL below 70 mg/dL. The findings and recommendations were discussed with the patient and the family, they are in full understanding and agreement. Duration of sedation: 66 minutes
[2023-03-03] MEDS ORDERED: SODIUM CHLORIDE 0.9% 1,000 ML in EMPTY BAG 1 BAG IV SCH (13:15)
[2023-03-03 14:11] VITALS: BMI 38.1
--- NOTE | 2023-03-03 14:15 | P.CARDCATH ---
Date of Procedure: 03/03/23 Description of Procedure: DIAGNOSTIC CORONARY ANGIOGRAPHY and LEFT HEART CATH REPORT PROCEDURES PERFORMED: Left heart catheterization Selective coronary angiography Moderate conscious sedation 28 mins Ultrasound assisted Right radial access INDICATION: [Unstable angina] CONSENT: I have discussed the risks, benefits and alternative therapies for the above-mentioned procedure, sedation/analgesia and necessary blood product administration (if indicated, as they pertain to this patient). The patient has indicated understanding and acceptance of the risks and procedures discussed. Conscious Sedation: Patient's ECG, heart rate, blood pressure, pulse oximetry was monitored throughout the duration of procedure under my direct supervision. 2 mg Versed and 50 mg Fentanyl were used for induction of moderate conscious sedation. Total duration of moderate concious sedation 28 minutes. PROCEDURE: After explaining the risks, benefits and alternatives of the above mentioned procedures in detail to the patient, informed consent was obtained. Patient was taken to the catheterization lab, prepped and draped in usual sterile fashion using universal precuations. Barbow and catrachita test were performed to confirm adequate perfusion to fingers. Ultrasound was used to identify the radial artery. 1% lidocaine was infiltrated over the right radial artery. A 6-Bhutanese sheath was placed and secured in the right radial artery using modified Seldinger technique. The sheath was flushed and 5 mg verapamil was administered intra-arterially. J tipped wire was advanced under fluoroscopic guidance. Once the wire tip reached aortic root 6000 units of IV heparin was given. Over the wire JL4 diagnostic catheter was advanced. Wire was removed, catheter was flushed and manipulated under fluoroscopy to selectively engaged the left coronary ostium. Left coronary angioplasty was performed in different angiographic projections. This catheter was exchanged for a JR4 diagnostic catheter over the wire. The catheter was flushed and manipulated to cross the aortic valve. LV pressures were obtained. Pullback was performed across aortic valve and catheter was manipulated to selectively engage the right coronary ostium under fluoroscopic guidance. Right coronary angiography was performed in different angiographic projections. Catheter was removed over the wire. Radial sheath was flushed. The right radial sheath was removed and a TR band was placed with excellent patent hemostasis was achieved. The patient tolerated the procedure well. Patient was transported back to the post catheterization holding area in stable condition. Angiographic images were reviewed in detail. HEMODYNAMICS: Aortic Pressure: 120/80 mmHg. LV pressure: 113/10 mmHg. LVEDP 22 mmHg. SELECTIVE CORONARY ARTERIOGRAPHY: LEFT MAIN: The left main is a large caliber vessel which bifurcates into the LAD and circumflex. Left main appears angiographically normal. LEFT ANTERIOR DESCENDING CORONARY ARTERY: LAD is a large caliber vessel which wraps around to the apex. It appears angiographically normal. It gives rise to 2 small diagonal branches appears angiographically normal LEFT CIRCUMFLEX CORONARY ARTERY: It is nondominant vessel. Left circumflex is a moderate caliber vessel. It appears angiographically normal. It gives rise to medium size OM 1 and OM 2 branch which appears angiographically normal. RIGHT CORONARY ARTERY: Dominant vessel. Diffuse disease starting from proximal RCA stent and distal RCA. Distal RCA has subtotal 99% occlusion with STEVE 1 flow in PDA. There is left to right collaterals filling the PDA retrogradely IMPRESSION: 99% distal RCA occlusion with STEVE 1 flow Moderate diffuse disease in proximal to distal RCA [id number] epicardial collaterals filling PDA retrogradely No significant CAD involving LAD and its extremity Elevated LVEDP PLAN: Plan for PCI of RCA. Case discussed with canvas cutter hand Performing Physician Kevin Barajas MD
[2023-03-03] MEDS: TAMSULOSIN 0.4 MG CAP.ER.24H PO SCH (20:57)
[2023-03-03] MEDS: APIXABAN 5 MG TAB PO SCH (20:57)
[2023-03-03] MEDS ORDERED: ATORVASTATIN 40 MG TAB PO SCH (21:00)
--- NOTE | 2023-03-03 22:26 | PN ---
PROGRESS NOTE DATE OF SERVICE: 03/02/2023 SUBJECTIVE: The patient is sitting in a chair, waiting for heart catheterization tomorrow. OBJECTIVE: CARDIOVASCULAR: S1, S2. LUNGS: Scattered wheeze. HEMATOLOGY: Negative for Homans. PSYCH: Fair mood and affect. VITAL SIGNS: He is saturating 93 to 94 on room air. Blood pressure 113 to 120/48, pulse is 63 to 74, respiratory rate 16 to 18. ASSESSMENT: Atypical chest pain, atrial fibrillation, atrial fibrillation, obesity, probably obstructive sleep apnea, COPD. Prognosis guarded. Continue current treatment. Prognosis guarded with heart catheterization tomorrow. MMODL / IJN: [id number] /
[2023-03-04] MEDS: LOSARTAN 25 MG TAB PO SCH (08:27)
[2023-03-04] MEDS: METOPROLOL TARTRATE 50 MG TAB PO SCH (08:27)
[2023-03-04] MEDS: APIXABAN 5 MG TAB PO SCH (08:27)
[2023-03-04] MEDS: IPRATROPIUM-ALBUTEROL 3 ML NEB INHALATION SCH ×3 (08:47→15:57)
[2023-03-04] MEDS ORDERED: CLOPIDOGREL 75 MG TAB PO SCH (09:00)
[2023-03-04] MEDS ORDERED: ASPIRIN 81 MG PO SCH (09:00)
[2023-03-04 09:06] LABS: African American GFR (CKD) >90 (>60 ml/min/1.73 sqM); Anion Gap 8 mmol/L; Blood Urea Nitrogen 28 mg/dL (9-20); Carbon Dioxide 26 mmol/L (22-30); Chloride 104 mmol/L (98-107); Glucose 125 mg/dL (74-99); Non-African American GFR(CKD) 80 (>60 ml/min/1.73 sqM); Potassium 4.5 mmol/L (3.5-5.1); Sodium 138 mmol/L (137-145)
--- NOTE | 2023-03-04 13:25 | P.PN ---
Subjective Progress Note Date: 03/03/23 Principal diagnosis: Reason for follow-up is leukocytosis Patient is a 73-year old male apparently seem to have a problem with the URI/lower chest infection for the patient has been evaluated by his primary care physician and has been treated with a short course of oral antibiotic and steroids with the patient was still taking by the time he presented to hospital initially admitted for a stress test developed A-fib for the patient was admitted to the hospital noticed to have elevated white count prompting this infectious disease consultation. On today's evaluation that is 03/03/2023 patient denies having any fever or any chills patient is breathing comfortably on room air patient denies having any chest pain cough has improved no nausea vomiting no abdominal pain no diarrhea Patient white count is down to 11.8, creatinine is 1.13 procalcitonin 0.10 Objective - Vital Signs Vital signs: Vital Signs Temp 97.5 F L 03/03/23 08:00 Pulse 58 L 03/03/23 09:49 Resp 18 03/03/23 09:49 BP 136/82 03/03/23 09:49 Pulse Ox 91 L 03/03/23 09:49 FiO2 Intake & Output 03/02/23 03/03/23 03/03/23 18:59 06:59 18:59 Intake Total 828.927 100 Balance 828.927 100 Weight 113.7 kg Intake: IV 100 Intake, IV Titration 252.927 Amount Diltiazem 125 mg In 107.75 Sodium Chloride 0.9% 100 ml @ 5 MG/HR 5 mls/hr IV .Q24H [facility] Rx#:[id number] Heparin Sod,Pork in 0.45% 145.177 NaCl 25,000 unit In 0.45 % NaCl 1 250ml.bag @ 8. 818 UNITS/KG/HR 9.999 mls /hr IV .Q24H [facility] Rx#: [id number] Oral 576 Other: # Voids 4 2 - Exam GENERAL DESCRIPTION: An elderly male lying in bed in no distress RESPIRATORY SYSTEM: Unlabored breathing , decreased breath sounds at bases HEART: S1 S2 regular rate and rhythm , ABDOMEN: Soft , no tenderness EXTREMITIES: No edema feet - Labs CBC & Chem 7: 03/03/23 07:54 03/04/23 08:10 Labs: Abnormal Lab Results - Last 24 Hours (Table) 03/03/23 03/03/23 Range/Units 07:54 07:54 WBC 11.8 H (3.8-10.6) k/uL Neutrophils # 8.7 H (1.3-7.7) k/uL BUN 36 H (9-20) mg/dL Assessment and Plan (1) Leukocytosis Current Visit: Yes Status: Acute Code(s): D72.829 - ELEVATED WHITE BLOOD CELL COUNT, UNSPECIFIED SNOMED Code(s): 931464123 Plan: 1patient with leukocytosis more likely related to steroid the patient has been out in the outpatient setting for bronchitis prescribed by his primary care physician patient admitted to the hospital with A-fib after the stress test currently with no fever patient did have a chest x-ray followed by CT of the chest that was negative for any pneumonia he does not have any urinary symptoms abdominal soft on clinical examination and no evidence of any cellulitis 2-patient white count is trending down and the patient procalcitonin is only 0.10 clinically doubt bacterial infection 3-consider discontinuation of Rocephin Dictation was produced using [employer] dictation software. please excuse any grammatical, word or spelling errors. Time with Patient: Less than 30
--- NOTE | 2023-03-04 13:27 | P.PN ---
Subjective Progress Note Date: 03/04/23 Principal diagnosis: Reason for follow-up is leukocytosis Patient is a 73-year old male apparently seem to have a problem with the URI/lower chest infection for the patient has been evaluated by his primary care physician and has been treated with a short course of oral antibiotic and steroids with the patient was still taking by the time he presented to hospital initially admitted for a stress test developed A-fib for the patient was admitted to the hospital noticed to have elevated white count prompting this infectious disease consultation. Patient is status post cardiac cath and stenting of the RCA completed 03/02/2023 On today's evaluation that is 03/04/2023 patient remains to be afebrile, patient is breathing comfortably on room air patient mention feeling better, denies having any chest pain denies any cough or sputum production no nausea vomiting no abdominal pain no diarrhea feeling better Patient white count is down to 11.8 as of yesterday, creatinine is 0.95 procalcitonin 0.10 Objective - Vital Signs Vital signs: Vital Signs Temp 98.5 F 03/04/23 08:00 Pulse 68 03/04/23 08:57 Resp 16 03/04/23 08:00 BP 125/73 03/04/23 08:00 Pulse Ox 93 L 03/04/23 08:00 FiO2 Intake & Output 03/03/23 03/04/23 03/04/23 18:59 06:59 18:59 Intake Total 999 944 6958 Output Total 400 Balance 551 355 1536 Weight 113.7 kg Intake: IV 400 Intake, IV Titration 50 Amount cefTRIAXone 1 gm In 50 Sodium Chloride 0.9% 50 ml @ 100 mls/hr IVPB Q24HR [facility] Rx#:[id number] Oral [id number] Output: Urine 400 Other: Voiding Method Toilet Toilet Toilet # Voids 3 - Exam GENERAL DESCRIPTION: An elderly male lying in bed in no distress RESPIRATORY SYSTEM: Unlabored breathing , decreased breath sounds at bases HEART: S1 S2 regular rate and rhythm , ABDOMEN: Soft , no tenderness EXTREMITIES: No edema feet - Labs CBC & Chem 7: 03/03/23 07:54 03/04/23 08:10 Labs: Abnormal Lab Results - Last 24 Hours (Table) 03/03/23 03/04/23 Range/Units 07:54 08:10 BUN 28 H (9-20) mg/dL Glucose 125 H (74-99) mg/dL Procalcitonin 0.10 H (0.02-0.09) ng/mL Assessment and Plan (1) Leukocytosis Current Visit: Yes Status: Acute Code(s): D72.829 - ELEVATED WHITE BLOOD CELL COUNT, UNSPECIFIED SNOMED Code(s): 336790034 Plan: 1patient with leukocytosis more likely related to steroid the patient has been out in the outpatient setting for bronchitis prescribed by his primary care physician patient admitted to the hospital with A-fib after the stress test currently with no fever patient did have a chest x-ray followed by CT of the chest that was negative for any pneumonia he does not have any urinary symptoms abdominal soft on clinical examination and no evidence of any cellulitis 2-patient white count is trending down and the patient procalcitonin is only 0.10 clinically doubt bacterial infection 3-we will go ahead and discontinue Rocephin as no evidence of any bacterial infection and monitor patient closely off antibiotics Dictation was produced using [employer] dictation software. please excuse any grammatical, word or spelling errors. Time with Patient: Less than 30
[2023-03-04 14:38] VITALS: BP 131/79; RESP 17; TEMP 98.1
--- NOTE | 2023-03-04 15:21 | P.PN ---
Subjective Progress Note Date: 03/04/23 Consult reason: atrial fibrillation (w RVR) History of present illness: History of present illness: This is a 73-year-old male with past medical history of hypertension, hyperlipidemia, history of tobacco use quit in June 2022. Patiet does not follow with a sales market leader We have been asked to evaluate the patient for A. fib with RVR. Patient presented to the emergency center for a stress test and after it was completed, patient went into atrial fibrillation. He has no previous history of atrial fibrillation. He was initially lightheaded and short of breath was recently started on Lasix with loss of 8 pounds. Patient states he has not been feeling will with increased shortness of breath since Kirsten. For the past year he has not been able to walk any long distance and felt palpatations. He states that even now when he lays down he feels palpitations in his chest and shortness of breath. He states he has a family history of multiple family members with atrial fibrillation and ablations. Patient has started on Cardizem bolus followed by drip and heparin drip, 1 L of IV fluids and resumed on his home cardiac medications to start today. Cardizem drip is currently at 5 mg per hour. Discussed anticoagulation options with the patient and he is agreeable to start eliquis. However, following that discussion, patient's EF came back low and he will be scheduled for cardiac catheterization tomorrow morning with Dr. Barajas. Patient would like to follow in the office with Dr. Dan as he met him yesterday during stress testing. Patient has a history of smoking and quit a number of years ago. Rare alcohol use. He denies any marijuana or illicit drug use. Discussed obstructive sleep apnea and patient will need outpatient workup. EKG atrial fibrillation with ventricular rate of 138. Repeat atrial fibrillation at ventricular rate of 81. Chest x-ray: Cardiomegaly and COPD. Lower lung opacities likely related to overlying soft tissue. No acute process. CT of the chest: No evidence of acute thoracic process. Mild coronary artery atherosclerosis. Pulmonary nodules. WBC 12.8, hemoglobin 16.4, platelet count 184. INR 1. D-dimer 0.57. A 2 lites are normal. BUN 38 creatinine 1. Troponin negative 3. ProBNP 363. TSH 1.53. Urine drug screen negative. Home cardiac medications: Atenolol 59 g daily, atorvastatin 10 mg at bedtime, Lasix 40 mg daily, losartan 25 mg daily. 03/04 Yesterday, patient underwent cardiac catheterization with Dr. Barajas which revealed 99% distal RCA occlusion with TI NH 1 flow, moderate diffuse disease in the proximal to distal RCA, left to right epicardial collaterals filling PDA retrogradely. No significant CAD in the LAD. Elevated LVEDP. Subsequently, patient underwent stenting of the proximal, mid, and distal RCA by Dr. Whitfield with recommendations to continue aspirin and Plavix without interruption for at least 6 months in addition to aggressive coronary risk modifications. Patient denies having any chest pain, shortness of breath, lightheadedness or dizziness. Physical examination: Gen: This is a 73-year-old male resting in bed, no acute distress VS: reviewed HEENT: Head is atraumatic, normocephalic. Pupils equal, round. Sclerae is anicteric. NECK: Supple. No JVD. LUNGS: Clear to auscultation. No wheezes or rhonchi. No intercostal retractions. HEART: Regular rate and rhythm. No murmur. ABDOMEN: Soft No tenderness. EXTREMITIES: No pedal edema. No calf tenderness. NEUROLOGICAL: Patient is awake, alert and oriented x3. Assessment: Paroxysmal atrial fibrillation with RVR, new onset Hypertension Hyperlipidemia Griggs myopathy Plan: Patient is cleared from cardiology for discharge and will be continued on Lopressor, atorvastatin, Plavix and Eliquis. No aspirin at this time. Patient will continue losartan. New prescriptions have been sent to his pharmacy. Patient to follow-up w PCP regarding outpatient sleep study to rule out obstructive sleep apnea Follow-up with Dr. Dan in 1 to 2 weeks. Nurse practitioner note has been reviewed, I agree with documented findings and plan of care. Patient was seen and examined. Objective - Vital Signs Vital signs: Vital Signs Temp 98.1 F 03/04/23 12:00 Pulse 66 03/04/23 12:00 Resp 17 03/04/23 12:00 BP 131/79 03/04/23 12:00 Pulse Ox 94 L 03/04/23 12:00 FiO2 Intake & Output 03/03/23 03/04/23 03/04/23 18:59 06:59 18:59 Intake Total 435 954 8442 Output Total 400 Balance 359 965 0370 Weight 113.7 kg Intake: IV 400 Intake, IV Titration 50 Amount cefTRIAXone 1 gm In 50 Sodium Chloride 0.9% 50 ml @ 100 mls/hr IVPB Q24HR [facility] Rx#:[id number] Oral [phone] Output: Urine 400 Other: Voiding Method Toilet Toilet Toilet # Voids 3 - Labs CBC & Chem 7: 03/03/23 07:54 03/04/23 08:10 Labs: Abnormal Lab Results - Last 24 Hours (Table) 03/03/23 03/04/23 Range/Units 07:54 08:10 BUN 28 H (9-20) mg/dL Glucose 125 H (74-99) mg/dL Procalcitonin 0.10 H (0.02-0.09) ng/mL
[2023-03-04 16:13] VITALS: PULSE 68
== END 2023-03-04 17:13 | disposition home or self-care (01) | DRG 322 ==
LOC: EC 11:07 → 3SCARD 13:08
PROVIDERS: ADMIT Family Medicine; ATTEND Family Medicine
PROC: 027036Z Dilation of Coronary Artery, One Artery with Three Drug-eluting Intraluminal Devices, Percutaneous Approach (ICD-10-PCS; principal; 2023-03-03 08:30)
PROC: B240ZZ3 Ultrasonography of Single Coronary Artery, Intravascular (ICD-10-PCS; principal; 2023-03-03 08:30)
PROC: B2111ZZ Fluoroscopy of Multiple Coronary Arteries using Low Osmolar Contrast (ICD-10-PCS; 2023-03-03 08:30)
PROC: 4A023N7 Measurement of Cardiac Sampling and Pressure, Left Heart, Percutaneous Approach (ICD-10-PCS; 2023-03-03 08:30)
DX: I48.0 Paroxysmal atrial fibrillation (principal); I25.110 Atherosclerotic heart disease of native coronary artery with unstable angina pectoris; J44.0 Chronic obstructive pulmonary disease with (acute) lower respiratory infection; I47.20 Ventricular tachycardia, unspecified; I11.9 Hypertensive heart disease without heart failure; I25.84 Coronary atherosclerosis due to calcified coronary lesion; J20.9 Acute bronchitis, unspecified; E78.5 Hyperlipidemia, unspecified; G47.33 Obstructive sleep apnea (adult) (pediatric); E66.9 Obesity, unspecified; Z68.38 Body mass index [BMI] 38.0-38.9, adult; N40.0 Benign prostatic hyperplasia without lower urinary tract symptoms; R91.8 Other nonspecific abnormal finding of lung field; Z79.899 Other long term (current) drug therapy; Z87.891 Personal history of nicotine dependence; Z85.828 Personal history of other malignant neoplasm of skin; Z71.3 Dietary counseling and surveillance; Z82.49 Family history of ischemic heart disease and other diseases of the circulatory system
CPT/HCPCS: 36415; 71046; 71250; 76937; 80048; 80053; 80061; 80306; 83036; 83735; 83880; 84145; 84443; 84484; 85025; 85379; 85610; 85730; 86140; 92978; 93005; 93458; 94640; 94760; 96365; 96366; 96368; 96375; 99291

== ENCOUNTER → 2023-03-01 | Outpatient (CLI) | payer MEDICARE ==
--- NOTE | 2023-03-02 09:30 | CA ---
Transthoracic Echo Report Name: Miguel Perry Age: 73 Gender: M : 1950 Exam Date: 03/01/2023 10:16 Exam Location: [facility] Ht (in): 68 Wt (lb): 250 Ordering Physician: Micaela Mccormick Attending/Referring Phys: [id number], Jace Quality Tech Reema Stein RDCS Procedure CPT: Indications: New onset afib Cardiac Hx: Technical Quality: Technically difficult study Contrast 1: Definity Total Dose (mL): 2 Contrast 2: Total Dose (mL): MEASUREMENTS (Male / Female) Normal Values 2D ECHO LV Diastolic Diameter PLAX 4.3 cm 4.2 - 5.9 / 3.9 - 5.3 cm LV Systolic Diameter PLAX 3.6 cm IVS Diastolic Thickness 2.1 cm 0.6 - 1.0 / 0.6 - 0.9 cm LVPW Diastolic Thickness 1.7 cm 0.6 - 1.0 / 0.6 - 0.9 cm LV Relative Wall Thickness 0.9 RV Internal Dim ED PLAX 3.5 cm LA Volume 60.5 cm??? 18 - 58 / 22 - 52 cm??? LA Volume Index 25.4 cm???/m??? 16 - 28 cm???/m??? M-MODE Aortic Root Diameter MM 3.4 cm LA Systolic Diameter MM 4.3 cm LA Ao Ratio MM 1.3 AV Cusp Separation MM 1.8 cm DOPPLER AV Peak Velocity 190.3 cm/s AV Peak Gradient 14.5 mmHg AV Mean Velocity 128.8 cm/s AV Mean Gradient 7.9 mmHg AV Velocity Time Integral 28.4 cm LVOT Peak Velocity 102.6 cm/s LVOT Peak Gradient 4.2 mmHg LVOT Velocity Time Integral 17.9 cm MV Area PHT 4.3 cm??? Mitral E Point Velocity 104.2 cm/s Mitral A Point Velocity 1.6 cm/s Mitral E to A Ratio 63.9 MV Deceleration Time 177.9 ms MV E' Velocity 10.3 cm/s Mitral E to MV E' Ratio 10.1 TR Peak Velocity 255.8 cm/s TR Peak Gradient 26.2 mmHg Right Ventricular Systolic Press 30.2 mmHg FINDINGS Left Ventricle Severely increased left ventricular wall thickness. Reduced global left ventricular systolic function. Left ventricular ejection fraction is estimated at 40-45%. Right Ventricle Mild right ventricular dilatation. Right ventricular systolic pressure within normal limits. Right Atrium Mild right atrial dilatation. Left Atrium Mildly increased left atrial volume. Mildly increased left atrial area. Mitral Valve Mild mitral annular calcification. Mild mitral regurgitation. Aortic Valve No aortic valve stenosis or regurgitation. Tricuspid Valve Mild tricuspid regurgitation. Pulmonic Valve Trace pulmonic regurgitation. Pericardium No pericardial effusion. Aorta Normal size aortic root and proximal ascending aorta. CONCLUSIONS moderate LV dysfunction pt tachycardiac Previewed by: Dr. Ubaldo Dan MD (Electronically Signed) Final Date: 02 March 2023 09:29
--- NOTE | 2023-03-02 10:14 | CA ---
Stress Echo Report Miguel Perry Age: 73 Gender: M : 1950 Exam Date: 03/01/2023 09:16 Exam Location: [facility] Ht (in): 68 Wt (lb): 250 Ordering Physician: Urmila Chavez MD Referring Physician: BHARATH,, Custom Grinder: Reema Stein RDCS Technologist Procedure CPT: Indication: pulmonary edema ICD-9 Codes: Rhythm: Patient History: DIFFICULTY IN BREATHING, PALPITATIONS, HTN, ELEVATED CHOLESTEROL LEVELS, FAMILY HX OF HEART DISEASE, PRIOR SMOKER, COPD Cardiac Medications: Medications in past 24 hours: Contrast: Definity Stress Results Protocol: Charli Total dose(mL): Exercise Duration (min:sec): 4:[address] Depression (mm): Angina Score: Duffy Score: METS: 6.4 Resting HR: 79 Resting BP: 129 / 76 Peak HR: 174 Peak BP: 176 / 75 Max Predicted HR: 148 118 % Max Predicted HR Target HR: 126 Double Product: [id number] Stress Summary: BP Response: Reason for Termination: MAX EXERTION Cardiac Symptoms: DIFFICULTY IN BREATHING ECG Analysis Resting ECG: Stress ECG: Arrhythmia: Echo Analysis Resting Echo: Peak Echo Analysis: MEASUREMENTS (Male/Female) Normal Values CONCLUSIONS Mild LV dysfunction at baseline Normal twelve-lead EKG with occasional PVCs With exercise, nonsustained PMVT noted intermittently subsequently the patient went into atrial fibrillation with RVR At least [address] depression noted Overall augmentation of LV contractility at peak exercise and during atrial fibrillation in recovery Impression Mildly reduced LV systolic function at baseline which may be a function of frequent PVCs at baseline nonsustained PMVT with exercise ST depression during atrial fibrillation with RVR Dr. Ubaldo Dan MD (Electronically Signed) Final Date: 02 March 2023 10:13
== END | disposition home or self-care (01) ==
LOC: RADNMMAIN 08:49
PROVIDERS: ATTEND Student in an Organized Health Care Education/Training Program
DX: I48.91 Unspecified atrial fibrillation (principal); I49.3 Ventricular premature depolarization; J44.9 Chronic obstructive pulmonary disease, unspecified; I10 Essential (primary) hypertension; E78.00 Pure hypercholesterolemia, unspecified; J81.0 Acute pulmonary edema; R06.00 Dyspnea, unspecified; R00.0 Tachycardia, unspecified
CPT/HCPCS: C8929; C8930; 93306; 93351

== ENCOUNTER → 2024-01-21 | Outpatient (CLI) | payer MEDICARE ==
[2024-01-21 18:56] LABS: Blood Urea Nitrogen 20.4 mg/dL (9.0-27.0); Chloride 104 mmol/L (96-109); Potassium 5.2 mmol/L (3.5-5.5); Sodium 140 mmol/L (135-145)
[2024-01-21 20:16] LABS: HCT 52.7 % (39.6-50.0); HGB 15.9 g/dL (13.0-17.0); MCH 30.1 pg (27.0-32.0); MCHC 30.2 g/dL (32.0-37.0); MCV 99.8 FL (80.0-97.0); Mean Platelet Volume 11.8 FL (9.5-12.2); NRBC Per 100 WBC 0 X 10*3/uL (0.00-0.01); Platelet Count 199 X 10*3/uL (140-440); RBC 5.28 X 10*6/uL (4.40-5.60); RDW 12.6 % (11.5-14.5); WBC 7.74 X 10*3/uL (4.50-10.00)
== END | disposition home or self-care (01) ==
LOC: LABPAT 10:46
PROVIDERS: ATTEND Internal Medicine Clinical Cardiac Electrophysiology
DX: I48.0 Paroxysmal atrial fibrillation (principal)
CPT/HCPCS: 80051; 82565; 84520; 85027

== ENCOUNTER 2024-01-27 11:06 | Day surgery (SDC) | payer MEDICARE ==
[2024-01-26 08:59] VITALS: BMI 40.3
[2024-01-27] MEDS: SODIUM CHLORIDE 0.9% 1,000 ML IV SCH ×2 (11:51→19:58)
[2024-01-27] MEDS: IV FLUID CONTINUATION 1,000 ML IV ONE (11:52)
[2024-01-27 12:22] LABS: ALT 28 U/L (4-49); AST 23 U/L (17-59); African American GFR (CKD) 67 (>60 ml/min/1.73 sqM); Albumin 4.6 g/dL (3.5-5.0); Alkaline Phosphatase 97 U/L (38-126); Anion Gap 4 mmol/L; Blood Urea Nitrogen 18 mg/dL (9-20); Calcium 9.3 mg/dL (8.4-10.2); Carbon Dioxide 30 mmol/L (22-30); Chloride 105 mmol/L (98-107); Glucose 108 mg/dL (74-99); Non-African American GFR(CKD) 58 (>60 ml/min/1.73 sqM); Potassium 4.6 mmol/L (3.5-5.1); Sodium 139 mmol/L (137-145); Total Bilirubin 0.6 mg/dL (0.2-1.3)
[2024-01-27] MEDS: HEPARIN SOD,PORK IN 0.45% NACL 25,000 UNIT in 0.45% NACL 1 250ML.BAG IV ONE (16:26)
--- NOTE | 2024-01-27 16:48 | P.HPCAR ---
History of Present Illness This is Dr. Dan dictating an H/P on this patient The patient was interviewed and examined IMPRESSION / ASSESSMENT: Paroxysmal atrial fibrillation with RVR, symptomatic with shortness of breath with minimal exertion 20% AF burden Nighttime bradycardia Coronary artery disease stenting to the RCA Type 2 diabetes Dyslipidemia Increased BMI, morbid obesity 41.5 kg/m Recent Lexiscan does not show any evidence for ischemia. Normal myocardial perfusion with ejection fraction of 60% with LV is mildly dilated PLAN: A-fib ablation with PVI and left atrial septal ablation Continue anticoagulation Continue losartan and Farxiga HPI Patient continues to have episodes of atrial fibrillation with RVR. He has at least a 20% AF burden and the longest episode has lasted for almost 18 hours His main symptom is shortness of breath on exertion ROS: No fever chills or rigors, no cough, phlegm or expectoration, no nausea, vomiting or diarrhea, no hematuria, dysuria, no musculoskeletal complaints, no strokes or seizures, no skin lesions. EXAMINATION: Pulse rate in the 50s, blood pressure 145/75 mmHg Respirations normal Breath sounds are clear no rhonchi no crackles Heart sounds S1-S2 normal and regular No JVD Central obesity No lower extremity edema REVIEW OF LABS, ECG & MEDICAL DATA Sodium 139, potassium 4.6 BUN 18 and creatinine 1.24 TSH 3.7 Physical Exam Vitals: Vital Signs Pulse Resp BP Pulse Ox 01/27/24 11:49 59 L 18 145/75 93 L Intake and Output 01/27/24 01/27/24 01/27/24 06:59 14:59 22:59 Intake Total 20 0 Balance 20 0 Intake: IV 20 0 Other: Weight 123.8 kg Past Medical History Past Medical History: Atrial Fibrillation, Cancer, COPD, Hyperlipidemia, Hypertension, Prostate Disorder Additional Past Medical History / Comment(s): See Cardiology H&P. HX SKIN CANCER. History of Any Multi-Drug Resistant Organisms: None Reported Past Surgical History: Hernia Repair Additional Past Surgical History / Comment(s): BILATERAL CATARACTS REMOVED WITH LENS IMPLANTS, REPAIR DETACHED LEFT RETINA, SKIN CANCER REMOVED FROM NECK AND RIGHT WRIST, HERNIA REPAIR X2, COLONOSCOPY. Past Anesthesia/Blood Transfusion Reactions: No Reported Reaction Smoking Status: Former smoker - Past Family History Sister(s) Family Medical History: Cancer Physical Examination Vital Signs Pulse Resp BP Pulse Ox 01/27/24 11:49 59 L 18 145/75 93 L Intake and Output 01/27/24 01/27/24 01/27/24 06:59 14:59 22:59 Intake Total 20 0 Balance 20 0 Intake: IV 20 0 Other: Weight 123.8 kg Results 01/27/24 11:30 Cardiac Enzymes 01/27/24 Range/Units 11:30 AST 23 (17-59) U/L Comprehensive Metabolic Panel 01/27/24 Range/Units 11:30 Sodium 139 (137-145) mmol/L Potassium 4.6 (3.5-5.1) mmol/L Chloride 105 (98-107) mmol/L Carbon Dioxide 30 (22-30) mmol/L BUN 18 (9-20) mg/dL Creatinine 1.24 (0.66-1.25) mg/dL Glucose 108 H (74-99) mg/dL Calcium 9.3 (8.4-10.2) mg/dL AST 23 (17-59) U/L ALT 28 (4-49) U/L Alkaline Phosphatase 97 (38-126) U/L Total Protein 7.0 (6.3-8.2) g/dL Albumin 4.6 (3.5-5.0) g/dL Current Medications Generic Name Dose Route Start Last Admin Trade Name Freq PRN Reason Stop Dose Admin Sodium Chloride 1,000 mls @ 20 mls/hr 01/27/24 06:10 01/27/24 11:51 Saline 0.9% IV 02/26/24 06:09 20 mls/hr .Q24H [facility] Administration Sodium Chloride 1,000 mls @ 20 mls/hr 01/27/24 06:10 Saline 0.9% IV 02/26/24 06:09 .Q24H [facility] Intake and Output 01/27/24 01/27/24 01/27/24 06:59 14:59 22:59 Intake Total 20 0 Balance 20 0 Intake: IV 20 0 Other: Weight 123.8 kg Patient Weight 01/28/24 06:59 Weight 123.8 kg 01/27/24 11:30
[2024-01-27] MEDS: LIDOCAINE 1% INJ 10MG/ML (20 ML MDV) SQ ONE (17:00)
[2024-01-27] MEDS: HEPARIN SODIUM,PORCINE 10,000 UNIT in SODIUM CHLORIDE 0.9% 1,000 ML IRRIGATION ONE (17:37)
[2024-01-27] MEDS: HEPARIN SODIUM,PORCINE (1 ML) 2,500 UNIT in SODIUM CHLORIDE 0.9% 250 ML IRRIGATION ONE (17:37)
[2024-01-27] MEDS: IOPAMIDOL-370 100ML BTL INJ ONE (18:26)
--- NOTE | 2024-01-27 18:57 | P.EPPROC ---
- EP Procedure Note Electrophysiology Procedure Note: PROCEDURE A. fib ablation with pulmonary vein isolation and left atrial septal ablation DIAGNOSIS Paroxysmal atrial fibrillation, symptomatic, refractory to therapy. CAD status post stenting to the RCA, no evidence for ischemia on recent Lexiscan Cardiolite stress test RESULT No left atrial appendage mass seen on intracardiac echo, LVH with preserved systolic function Successful A. fib ablation/pulmonary vein isolation of all veins using cryo- ablation Complete entrance block in all 4 veins confirmed Left atrial septal ablation No evidence for phrenic nerve injury Esophageal deflection NO -central esophagus Normal LV function on intracardiac echo Left atrial pressures 12 mmHg, mean, normal Patient's main complaint is shortness of breath on exertion Plan Watch for sick sinus syndrome and chronotropic incompetence Management of obesity PROCEDURE DETAILS Written informed consent prior to procedure. Patient brought to the EP lab. General anesthesia given. Heparin administered. A city maintained above 300 seconds Both groins prepped and draped per protocol and venous sheaths placed. Esophagus intubated, circa catheter for temperature monitoring an endoscope for possible esophageal deflection. Phrenic nerve monitoring performed. Esophageal temperature monitoring performed. Esophageal deflection performed if circa catheter overlapping with the balloon or circa temperature less than 27.5C Intracardiac echocardiography performed. Pericardium evaluated. Left atrial appendage evaluated. Left atrium evaluated along with pulmonary veins Transseptal catheterization performed under fluoroscopic guidance and intr acardiac echo guidance Cryoablation sheath exchanged, balloon catheter along with achieve catheter placed in the left atrium. Pulmonary veins isolated in the following sequence: Left superior pulmonary vein followed by left inferior pulmonary vein, followed by right inferior pulmonary vein and lastly right superior pulmonary vein. Phrenic nerve stimulation along with capture thresholds within the SVC and right superior pulmonary vein to identify the phrenic nerve proximity to the cryo- balloon. Pulmonary veins isolated and confirmed with entrance and exit block. Phrenic nerve integrity confirmed at the end of the procedure Ablation of the left atrial septum performed with cannulation of the inferior branch of the right superior vein to achieve ablation of the posterior septum of the left atrium. Ablation of electrograms confirmed Diagnostic catheters for the high right atrium, His bundle, coronary sinus placed. LA and RA pressures recorded RA pressure: Mean pressure 14 mmHg LA pressure: 17/7/12 Diagnostic EP study with coronary sinus pacing and recording Baseline measurements: Sinus cycle length 905 ms, NE interval 153, QRS 95 and QT 466 ms AH 88 and HV interval 31 ms AV node Wenckebach block 350 ms Sinus node recovery times were 789, 1381 and 1386 ms. Borderline elevated corrected sinus node recovery times Venous sheaths were removed and hemostasis assured with a closure device. Patient extubated and transferred to recovery PROCEDURES PERFORMED Diagnostic EP study CS pacing and recording Left and right transseptal catheterization Catheter the mapping of the tachycardia Intracardiac echocardiography Pulmonary vein isolation with transseptal and comprehensive EPS, [id number] Linear ablation, left atrium, [id number]
[2024-01-27] MEDS: ACETAMINOPHEN IV (For NPO) 1,000 MG in EMPTY BAG 1 BAG IVPB ONE (19:57)
[2024-01-27] MEDS: APIXABAN 5 MG TAB PO SCH (21:29)
[2024-01-27] MEDS: ATORVASTATIN 40 MG TAB PO SCH (21:29)
[2024-01-27] MEDS: METOPROLOL TARTRATE 25 MG TAB PO SCH (21:29)
[2024-01-27] MEDS: TAMSULOSIN 0.4 MG CAP.ER.24H PO SCH (21:29)
[2024-01-27] MEDS: CLOPIDOGREL 75 MG TAB PO SCH (21:29)
[2024-01-28 07:32] VITALS: BP 147/81; PULSE 62; RESP 16; TEMP 97.6
[2024-01-28] MEDS: ASPIRIN 81 MG PO SCH (08:43)
[2024-01-28] MEDS: DAPAGLIFLOZIN PROPANEDIOL 10 MG TABLET PO SCH (08:43)
[2024-01-28] MEDS: LOSARTAN 25 MG TAB PO SCH (08:43)
[2024-01-28] MEDS: amLODIPine 2.5 MG TAB PO SCH (08:44)
[2024-01-28] MEDS: ACETAMINOPHEN TAB 325 MG TAB PO PRN (08:50)
--- NOTE | 2024-01-28 10:18 | P.DS ---
Providers Attending physician: Ubaldo Dan Primary care physician: [place] Hospital Course: Patient is a 74-year-old male who follows in the office with Dr. Barajas. He underwent pulmonary vein isolation yesterday with Dr. Dan. Successful isolation of all 4 veins without complication. Patient interviewed and examined sitting up in bed. He states he does not had any chest pain or difficulty breathing overnight. GENERAL: Well-appearing, well-nourished and in no acute distress. NECK: Supple without JVD or thyromegaly. LUNGS: Breath sounds clear to auscultation bilaterally. Respiration equal and unlabored. No wheezes, rales or rhonchi. HEART: Regular rate and rhythm without murmurs, rubs or gallops. S1 and S2 heard. EXTREMITIES: Normal range of motion, no edema. No clubbing or cyanosis. Peripheral pulses intact and strong. Bilateral groin sites are bruised. Small hematoma on the right TELEMETRY: Sinus rhythm overnight IMPRESSION: Paroxysmal atrial fibrillation, symptomatic, refractory to therapy Status post pulmonary vein isolation History of coronary artery disease PLAN: Continue current medication regimen No interruption of anticoagulation for 3 months Follow-up with primary cable lacer Dr. Barajas in 1 week I am dictating on behalf of Dr Ubaldo Dan's history/physical and assessment/plan. Plan - Discharge Summary Discharge Rx Participant: No New Discharge Prescriptions: Continue Apixaban [Eliquis] 5 mg PO BID #180 tab Metoprolol Tartrate 25 mg PO BID amLODIPine [Norvasc] 2.5 mg PO QAM Tamsulosin [Flomax] 0.4 mg PO HS Losartan [Cozaar] 25 mg PO QAM Albuterol Sulfate [Ventolin HFA] 2 puff INHALATION RT-QID PRN PRN Reason: Shortness Of Breath Atorvastatin [Lipitor] 40 mg PO HS #90 tablet Aspirin [Adult Low Dose Aspirin EC] 81 mg PO DAILY Clopidogrel [Plavix] 75 mg PO HS Dapagliflozin Propanediol [Farxiga] 10 mg PO QAM Discharge Medication List Losartan [Cozaar] 25 mg PO QAM 10/01/22 [History] Tamsulosin [Flomax] 0.4 mg PO HS 10/01/22 [History] Albuterol Sulfate [Ventolin HFA] 2 puff INHALATION RT-QID PRN 03/01/23 [History] Apixaban [Eliquis] 5 mg PO BID #180 tab 03/04/23 [Rx] Atorvastatin [Lipitor] 40 mg PO HS #90 tablet 03/04/23 [Rx] Aspirin [Adult Low Dose Aspirin EC] 81 mg PO DAILY 01/26/24 [History] Clopidogrel [Plavix] 75 mg PO HS 01/26/24 [History] Dapagliflozin Propanediol [Farxiga] 10 mg PO QAM 01/26/24 [History] Metoprolol Tartrate 25 mg PO BID 01/26/24 [History] amLODIPine [Norvasc] 2.5 mg PO QAM 01/26/24 [History] Follow up Appointment(s)/Referral(s): Ubaldo Dan MD [STAFF PHYSICIAN] - 1 Week Activity/Diet/Wound Care/Special Instructions: Post EP study - Ablation instructions 1. Keep access sites dry for 2 days. 2. No heavy lifting or straining for 2 days. 3. Avoid bending the hips repeatedly for 2 days. 4. You may go up and down stairs slowly 5. If you have had an ablation for atrial fibrillation or atrial flutter and are on a blood thinner, do not stop the blood thinner even temporarily for 3 months post ablation Call if the following is noted 1. Bleeding, increasing swelling or pain at the access sites. 2. Increasing chest discomfort, especially upon taking a deep breath. 3. Increasing shortness of breath, at rest or with exertion. 4. Undue cough / phlegm 5. Difficulty or pain while swallowing. 6. Pain or change in color in the extremities. 7. Fever, chills, rigors. 8. Increasing headache or neurologic symptoms. 9. Dizziness, fainting, palpitations For patients who have undergone an A-fib ablation /atrial flutter ablation Strict instruction; do NOT stop anticoagulation (Eliquis/Xarelto/Pradaxa) for the next 2 months temporarily, for any elective, nonurgent surgery. This increases the risk of stroke, post A-fib ablation Discharge Disposition: HOME SELF-CARE
== END 2024-01-28 12:13 | disposition home or self-care (01) ==
LOC: CATHEP 11:06 → 6NMEDSUR 18:24 → CATHEP 01-28 12:13
PROVIDERS: ATTEND Internal Medicine Clinical Cardiac Electrophysiology
DX: I48.0 Paroxysmal atrial fibrillation (principal); I25.10 Atherosclerotic heart disease of native coronary artery without angina pectoris; I10 Essential (primary) hypertension; E11.9 Type 2 diabetes mellitus without complications; E78.5 Hyperlipidemia, unspecified; E66.01 Morbid (severe) obesity due to excess calories; J44.9 Chronic obstructive pulmonary disease, unspecified; Z95.5 Presence of coronary angioplasty implant and graft; Z85.828 Personal history of other malignant neoplasm of skin; Z98.890 Other specified postprocedural states; Z87.891 Personal history of nicotine dependence; Z98.41 Cataract extraction status, right eye; Z98.42 Cataract extraction status, left eye; Z96.1 Presence of intraocular lens; Z82.49 Family history of ischemic heart disease and other diseases of the circulatory system; Z79.899 Other long term (current) drug therapy; Z79.01 Long term (current) use of anticoagulants; Z79.84 Long term (current) use of oral hypoglycemic drugs; Z79.82 Long term (current) use of aspirin; Z85.9 Personal history of malignant neoplasm, unspecified
CPT/HCPCS: 93656; 93657; 86900; 86901; 80053; 84443; 86850; J1644 ×3; J2003; J0131; Q9967

== ENCOUNTER 2024-01-29 02:47 | Observation (INO) | payer MEDICARE ==
[2024-01-29 03:43] LABS: ALT 26 U/L (4-49); AST 53 U/L (17-59); African American GFR (CKD) 62 (>60 ml/min/1.73 sqM); Albumin 4.6 g/dL (3.5-5.0); Alkaline Phosphatase 90 U/L (38-126); Anion Gap 8 mmol/L; Blood Urea Nitrogen 20 mg/dL (9-20); Carbon Dioxide 25 mmol/L (22-30); Chloride 104 mmol/L (98-107); Glucose 128 mg/dL (74-99); Non-African American GFR(CKD) 53 (>60 ml/min/1.73 sqM); Sodium 137 mmol/L (137-145); Total Protein 7.2 g/dL (6.3-8.2)
[2024-01-29 03:49] LABS: Potassium 5.2 mmol/L (3.5-5.1)
[2024-01-29 03:55] LABS: Basophils # (A) 0.1 k/uL (0-0.2); Basophils % (A) 1 %; Eosinophils # (A) 0.3 k/uL (0-0.7); Eosinophils % (A) 4 %; HCT 49.9 % (39.0-53.0); HGB 16.3 gm/dL (13.0-17.5); Lymphocytes # (A) 1.6 k/uL (1.0-4.8); Lymphocytes % (A) 17 %; MCH 31.3 pg (25.0-35.0); MCHC 32.7 g/dL (31.0-37.0); MCV 95.9 fL (80.0-100.0); Mean Platelet Volume 8.9; Monocytes # (A) 0.7 k/uL (0-1.0); Monocytes % (A) 8 %; Neutrophils # (A) 6.4 k/uL (1.3-7.7); Neutrophils % (A) 70 %; Platelet Count 184 k/uL (150-450); RDW 13.1 % (11.5-15.5); WBC 9.2 k/uL (3.8-10.6)
[2024-01-29] MEDS ORDERED: NALOXONE 0.4 MG/ML 1 ML VIAL IV PRN (03:56)
[2024-01-29] MEDS ORDERED: ONDANSETRON 4 MG/2 ML VIAL IVP PRN (03:56)
--- NOTE | 2024-01-29 03:58 | ED ---
General Adult HPI - General Chief complaint: Recheck/Abnormal Lab/Rx Stated complaint: Afib Ablasion Complication Time Seen by Provider: 01/29/24 03:05 Source: patient, RN notes reviewed, old records reviewed Mode of arrival: wheelchair - History of Present Illness Initial comments: Patient is a 74-year-old male who presents emergency department for postoperative bleeding from a catheterization site. Patient had a cardiac catheter a cardiac ablation by Dr. Dan on January 27, 2024. 2 days ago. Was discharged home yesterday on January 28, 2024. States that he was doing well at home when at approximately 7 PM he noticed he was having some bleeding from his catheterization site in the right groin. Bleeding increased. Patient is on Eliquis for his atrial fibrillation as well as has a history of hypertension, hyperlipidemia. States he soaked through multiple pieces of gauze as well as some towels at home and then presented to the emergency department earlier this morning for further evaluation. No obvious hematoma present. Patient has good distal pulses in the PT and DP of the right foot. No numbness. No pain. Just the bleeding. Presents for further evaluation. - Related Data Home Medications Medication Instructions Recorded Confirmed Losartan [Cozaar] 25 mg PO QAM 10/01/22 01/27/24 Tamsulosin [Flomax] 0.4 mg PO HS 10/01/22 01/27/24 Albuterol Sulfate [Ventolin HFA] 2 puff INHALATION RT-QID PRN 03/01/23 01/27/24 Aspirin [Adult Low Dose Aspirin EC] 81 mg PO DAILY 01/26/24 01/27/24 Clopidogrel [Plavix] 75 mg PO HS 01/26/24 01/27/24 Dapagliflozin Propanediol [Farxiga] 10 mg PO QAM 01/26/24 01/27/24 Metoprolol Tartrate 25 mg PO BID 01/26/24 01/27/24 amLODIPine [Norvasc] 2.5 mg PO QAM 01/26/24 01/27/24 Previous Rx's Medication Instructions Recorded Apixaban [Eliquis] 5 mg PO BID #180 tab 03/04/23 Atorvastatin [Lipitor] 40 mg PO HS #90 tablet 03/04/23 Allergies Allergy/AdvReac Type Severity Reaction Status Date / Time No Known Allergies Allergy Verified 12/14/24 02:53 Review of Systems ROS Statement: Those systems with pertinent positive or pertinent negative responses have been documented in the HPI. Review of Systems: CONST: Denies fever EYES: Denies blurry vision ENT: Denies nasal congestion C/V: Denies Chest pain RESP: Denies shortness of breath GI: Denies abdominal pain : Denies dysuria SKIN: Endorses bleeding at catheterization site. MSK: Denies joint pain. NEURO: Denies headache ROS Other: All systems not noted in ROS Statement are negative. Past Medical History Past Medical History: Atrial Fibrillation, Cancer, COPD, Hyperlipidemia, Hyperte nsion, Prostate Disorder Additional Past Medical History / Comment(s): See Cardiology H&P. HX SKIN CANCER. History of Any Multi-Drug Resistant Organisms: None Reported Past Surgical History: Hernia Repair Additional Past Surgical History / Comment(s): BILATERAL CATARACTS REMOVED WITH LENS IMPLANTS, REPAIR DETACHED LEFT RETINA, SKIN CANCER REMOVED FROM NECK AND RIGHT WRIST, HERNIA REPAIR X2, COLONOSCOPY. Past Anesthesia/Blood Transfusion Reactions: No Reported Reaction Past Psychological History: No Psychological Hx Reported Smoking Status: Former smoker - Past Family History Sister(s) Family Medical History: Cancer General Exam - General Exam Comments Initial Comments: General: Appears in no acute distress. HEAD: Normal with no signs of head trauma. EYES: EOMI ENT: Hearing grossly intact, normal oropharynx. RESPIRATORY: Clear breath sounds bilaterally. No wheezes, rales, or rhonchi. C/V: Irregular rate and rhythm. S1 and S2 auscultated, no edema, peripheral pulses 2+ and intact throughout. No obvious hematoma present. No obvious mass present. Pulses 2+ intact in distal right extremity in the DP and PT region. ABD: Abd is soft, nontender, nondistended EXT: Normal range of motion, no obvious deformity SKIN: Bruising at site of incision for cardiac catheter ablation in the right groin. Patient has bruising bilaterally. No obvious hematoma present. No obvious mass present. NEURO: Alert and oriented x 4. Course Vital Signs 01/29/24 01/29/24 01/29/24 02:50 03:22 04:00 Temperature 97.8 F Pulse Rate 106 H 106 H 118 H Respiratory 18 17 Rate Blood Pressure 120/75 103/78 126/69 O2 Sat by Pulse 92 L 90 L 95 Oximetry 01/29/24 01/29/24 01/29/24 04:15 04:30 05:36 Temperature Pulse Rate 114 H 131 H 102 H Respiratory 19 16 Rate Blood Pressure 119/75 124/69 116/88 O2 Sat by Pulse 94 L 94 L Oximetry Medical Decision Making - Medical Decision Making Was pt. sent in by a medical professional or institution (WISAM Londono, PHARMACY INFORMATICIST, urgent care, hospital, or retirement...) When possible be specific @ -No Did you speak to anyone other than the patient for history (EMS, parent, family, police, friend...)? What history was obtained from this source @ -No Did you review nursing and triage notes (agree or disagree)? Why? @ -I reviewed and agree with nursing and triage notes Were old charts reviewed (outside hosp., previous admission, EMS record, old EKG, old radiological studies, urgent care reports/EKG's, retirement records)? Report findings @ -. Recent surgical procedure when patient had cardiac ablation for atrial fibrillation. Confirmed patient is on Eliquis. Differential Diagnosis (chest pain, altered mental status, abdominal pain women, abdominal pain men, vaginal bleeding, weakness, fever, dyspnea, syncope, headache, dizziness, GI bleed, back pain, seizure, CVA, palpatations, mental health, musculoskeletal)? @ -Postop bleeding, postop complication, postop hematoma. This list is not all inclusive. EKG interpreted by me (3pts min.). @ -As above X-rays interpreted by me (1pt min.). @ -Chest x-ray reveals no obvious acute cardiopulmonary process. CT interpreted by me (1pt min.). @ -None done U/S interpreted by me (1pt. min.). @ -None done What testing was considered but not performed or refused? (CT, X-rays, U/S, labs)? Why? @ -None What meds were considered but not given or refused? Why? @ -None Did you discuss the management of the patient with other professionals (professionals i.e. WISAM Londono, PHARMACY INFORMATICIST, lab, RT, psych nurse, director of social work, oil distributor tender, teacher, ethics officer, caseworker intake)? Give summary @ -Discussed management with patient's liner reroll tender who completed the procedure, Dr. Dan. He requested that the FemoStop be removed as it will not be effective with tamponade and the patient's bleeding. He recommended a [id number]-[id number] or simple stitch be placed with a rolled up 4 x 4 piece of gauze over the surgical site with 2 or 3-0 silk. This was completed without issue. He does not want the patient's anticoagulation stopped. As per the patient being back in A-fib with RVR, recommended patient be initiated on 50 mg twice daily of metoprolol rather than his normal 25 mg twice daily. I was in agreement this plan. He requested I admit the patient under his service. Was smoking cessation discussed for >3mins.? @ -No Was critical care preformed (if so, how long)? @ -No Were there social determinants of health that impacted care today? How? (Homelessness, low income, unemployed, alcoholism, drug addiction, transportation, low edu. Level, literacy, decrease access to med. care, half-way, rehab)? @ -No Was there de-escalation of care discussed even if they declined (Discuss DNR or withdrawal of care, Hospice)? DNR status @ -No What co-morbidities impacted this encounter? (DM, HTN, Smoking, COPD, CAD, Cancer, CVA, ARF, Chemo, Hep., AIDS, mental health diagnosis, sleep apnea, morbid obesity)? @ -Atrial fibrillation on blood thinners, recent cardiac catheter for ablation Was patient admitted / discharged? Hospital course, mention meds given and route, prescriptions, significant lab abnormalities, going to OR and other pertinent info. @ -Patient presents for bleeding at a postop site where he had catheter access for an ablation done on January 26. 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 He is on Eliquis. Bleeding started approximately 7 PM last night. He has no real symptoms other than shoulder pain he has had since his hospitalization as well as the bleeding. He has good pulses distal to the site of bleeding. Upon arrival, FemoStop was placed. We will obtain basic labs. Patient is back in atrial fibrillation with RVR. It does seem relatively rate controlled with heart rate typically between 100- 120 bpm. Patient is hemodynamically stable. I will reach out to his liner reroll tender, Dr. Dan for further guidance. Discussed management with patient's liner reroll tender who completed the procedure, Dr. Dan. He requested that the FemoStop be removed as it will not be effective with tamponade and the patient's bleeding. He recommended a tcmlgr-be-ljjun or simple stitch be placed with a rolled up 4 x 4 piece of gauze over the surgical site with 2 or 3-0 silk. This was completed without issue. He does not want the patient's anticoagulation stopped. As per the [facility], recommended patient be initiated on 50 mg twice daily of metoprolol rather than his normal 25 mg twice daily. I was in agreement this plan. He requested I admit the patient under his service. Patient tolerated the procedure well. 3.[address] Swanji-hg-nvihy stitch was placed with gauze placed between the skin and the tiedown sutures, as instructed.. Patient was first thoroughly cleansed with ChloraPrep's at the site of bleeding and patient had local anesthetic placed, 5 cc of 2% lidocaine with epi. Bleeding seemed to stop. Patient tolerated the procedure well. Will continue to monitor. Continues to have good pulses distal to the site of the bleed. Continues to have no evidence of hematoma or mass in the right thigh. Patient's laboratory studies returned remarkable for normal hemoglobin. Patient has a hemolyzed potassium of 5.2. Patient given small bolus of IV fluids, as well as the metoprolol that was recommended by Dr. Dan and he was admitted to observation. Patient's heart rate is improved following administration of metoprolol. Averaging now mostly 100-110 while I am observing the patient in the room. No further obvious bleeding from the cath site as well as no obvious evidence of hematoma. Area is soft. No tenderness. Intact peripheral pulses. Reevaluated multiple times. Undiagnosed new problem with uncertain prognosis? @ -No Drug Therapy requiring intensive monitoring for toxicity (Heparin, Nitro, Insulin, Cardizem)? @ -No Were any procedures done? @ -No Diagnosis/symptom? @ -Postoperative bleeding, atrial fibrillation with RVR Acute, or Chronic, or Acute on Chronic? @ -Acute Uncomplicated (without systemic symptoms) or Complicated (systemic symptoms)? @ -Complicated Side effects of treatment? @ -No Exacerbation, Progression, or Severe Exacerbation? @ -No Poses a threat to life or bodily function? How? (Chest pain, [place], [place], pneumonia, PE, COPD, DKA, ARF, appy, cholecystitis, CVA, Diverticulitis, Homicidal, Suicidal, threat to staff... and all critical care pts) @ -Potentially, yes - Lab Data Result diagrams: 01/29/24 03:05 01/29/24 03:05 Lab Results 01/29/24 01/29/24 01/29/24 Range/Units 03:05 03:05 03:05 WBC 9.2 (3.8-10.6) k/uL RBC 5.20 (4.30-5.90) m/uL Hgb 16.3 (13.0-17.5) gm/dL Hct 49.9 (39.0-53.0) % MCV 95.9 (80.0-100.0) fL MCH 31.3 (25.0-35.0) pg MCHC 32.7 (31.0-37.0) g/dL RDW 13.1 (11.5-15.5) % Plt Count 184 (150-450) k/uL MPV 8.9 Neutrophils % 70 % Lymphocytes % 17 % Monocytes % 8 % Eosinophils % 4 % Basophils % 1 % Neutrophils # 6.4 (1.3-7.7) k/uL Lymphocytes # 1.6 (1.0-4.8) k/uL Monocytes # 0.7 (0-1.0) k/uL Eosinophils # 0.3 (0-0.7) k/uL Basophils # 0.1 (0-0.2) k/uL PT 11.1 (10.0-12.5) sec INR 1.0 (<1.2) APTT 26.1 (22.0-30.0) sec Sodium 137 (137-145) mmol/L Potassium 5.2 H (3.5-5.1) mmol/L Chloride 104 (98-107) mmol/L Carbon Dioxide 25 (22-30) mmol/L Anion Gap 8 mmol/L BUN 20 (9-20) mg/dL Creatinine 1.32 H (0.66-1.25) mg/dL Est GFR (CKD-EPI)AfAm 62 (>60 ml/min/1.73 sqM) Est GFR (CKD-EPI)NonAf 53 (>60 ml/min/1.73 sqM) Glucose 128 H (74-99) mg/dL Calcium 10.0 (8.4-10.2) mg/dL Total Bilirubin 1.0 (0.2-1.3) mg/dL AST 53 (17-59) U/L ALT 26 (4-49) U/L Alkaline Phosphatase 90 (38-126) U/L Total Protein 7.2 (6.3-8.2) g/dL Albumin 4.6 (3.5-5.0) g/dL - EKG Data -: EKG Interpreted by Me EKG Comments: 12-lead Electrocardiogram Interpretation Note EKG was reviewed and interpreted by myself. 12-lead ECG performed at 0311 is interpreted by me as revealing A-fib with RVR at a rate of 115 beats per minute. [place] is normal. QRS durations 86 ms, QTc is 358 ms. There were no ST or T wave abnormalities to suggest myocardial ischemia or injury. R wave progression across the precordium was satisfactory. By my interpretation this EKG is non-diagnostic for acute ischemia. Disposition Clinical Impression: Atrial fibrillation with RVR, Post-op bleeding Disposition: ADMITTED IP TO THIS HOSP Condition: Stable Time of Disposition: 03:57
[2024-01-29 04:09] LABS: Partial Thromboplastin Time 26.1 sec (22.0-30.0); Prothrombin Time 11.1 sec (10.0-12.5)
[2024-01-29] MEDS: METOPROLOL TARTRATE 50 MG TAB PO STA (04:10)
[2024-01-29] MEDS: LIDOCAINE 2%-EPI 1:100,000 20 ML VIAL SQ STA (04:10)
--- NOTE | 2024-01-29 04:11 | XR ---
EXAMINATION TYPE: XR chest 1V portable DATE OF EXAM: 01/29/2024 COMPARISON: Chest CT March 01, 2023 CLINICAL INDICATION: Male, 74 years old with history of recent ablation; TECHNIQUE: Single frontal view of the chest is obtained. FINDINGS: There is no focal air space opacity, pleural effusion, or pneumothorax seen. Mild cardiome january is present. The osseous structures are intact. IMPRESSION: Mild cardiomegaly without acute pulmonary process. [facility], , 01/29/2024 4:08 AM
[2024-01-29] MEDS: SODIUM CHLORIDE 0.9% 500 ML 500 ML IV STA (04:33)
[2024-01-29] MEDS: HYDROcodone/APAP 5-325MG 1 EACH TAB PO STA (05:34)
--- NOTE | 2024-01-29 09:31 | P.CRDCN ---
History of Present Illness Consult date: 01/29/24 Reason for Consult (text): Catheterization site bleeding/afib History of present illness: This is Johny Montesinos NP, I'm dictating on behalf of Dr. Dan's H&P and A&P The patient was interviewed and examined. HPI: Patient is a pleasant 74-year-old male with a past medical history of atrial fibrillation, skin cancer, COPD, hyperlipidemia, hypertension, and enlarged prostate who presents to the emergency department with complaints of bleeding from his catheterization site. Patient underwent a cardiac ablation with Dr. Dan on 01/27/2024. After going home the patient later that evening noted some bleeding from his cath site. He states that the bleeding increased and he attempted to stop it using gauze pads as well as home towels, but reports that the soaked through. Due to this he presented to the emergency department. In the ED the patient's hemoglobin was found to be stable. There was continued oozing noted. They contacted Dr. Dan, who asked them to stitch the area closed as well as to stitch some gauze around the area. This appears to be working. This morning the patient reports no further bleeding noted. The gauze is dry and intact and in place. There is no evidence of hematoma at the chel terization site. Patient does have some bruising noted, which is expected. Patient is also experiencing some atrial fibrillation with some mild RVR, this is also expected post ablation. ROS: [No fever, chills, or rigors] [no cough, phlegm, or expectoration] [no nausea, vomiting, or diarrhea] [no hematuria, dysuria] [no musculoskelatal complaints] [no strokes or seizures] [no skin lesions] EXAMINATION: GENERAL: Well-appearing, well-nourished and in no acute distress. NECK: Supple without JVD or thyromegaly. LUNGS: Breath sounds clear to auscultation bilaterally. Respiration equal and unlabored. No wheezes, rales or rhonchi. HEART: Irregular rate and rhythm without murmurs, rubs or gallops. S1 and S2 heard. EXTREMITIES: Normal range of motion, no edema. No clubbing or cyanosis. Per ipheral pulses intact and strong. REVIEW OF LABS, ECG & MEDICAL DATA: LABS: White count 9.2, hemoglobin 16.3, platelets 184, sodium 137, potassium 5.2, BUN 20, creatinine 1.32 EKG: Atrial fibrillation with rapid ventricular response, heart rate 115 IMAGING: Chest x-ray dated 01/29/2024 demonstrates mild cardiomegaly without acute pulmonary process. VITALS: Temp 97.8, heart rate 106, respirations 17, blood pressure 96/70, O2 saturation 93% on room air IMPRESSION: 1. Postcardiac ablation catheter site bleeding 2. Atrial fibrillation with rapid ventricular response 3. Hypertension PLAN: Maintain stitch with gauze to the insertion site. Start colchicine 0.6 mg daily. Increase metoprolol to 75 mg twice daily. Do not stop Eliquis. Patient may eat and ambulate. Will monitor overnight, if he maintains hemostasis will likely discharge tomorrow. Further recommendations based on patient's clinical course. Thank you for the consult and allowing us to participate in the care of this patient. Past Medical History Past Medical History: Atrial Fibrillation, Cancer, COPD, Hyperlipidemia, Hypertension, Prostate Disorder Additional Past Medical History / Comment(s): See Cardiology H&P. HX SKIN CANCER. History of Any Multi-Drug Resistant Organisms: None Reported Past Surgical History: Hernia Repair Additional Past Surgical History / Comment(s): BILATERAL CATARACTS REMOVED WITH LENS IMPLANTS, REPAIR DETACHED LEFT RETINA, SKIN CANCER REMOVED FROM NECK AND RIGHT WRIST, HERNIA REPAIR X2, COLONOSCOPY. Past Anesthesia/Blood Transfusion Reactions: No Reported Reaction Past Psychological History: No Psychological Hx Reported Smoking Status: Former smoker - Past Family History Sister(s) Family Medical History: Cancer Medications and Allergies Home Medications Medication Instructions Recorded Confirmed Type Losartan [Cozaar] 25 mg PO QAM 10/01/22 01/27/24 History Tamsulosin [Flomax] 0.4 mg PO HS 10/01/22 01/27/24 History Albuterol Sulfate [Ventolin HFA] 2 puff INHALATION RT-QID PRN 03/01/23 01/27/24 History Apixaban [Eliquis] 5 mg PO BID #180 tab 03/04/23 01/27/24 Rx Atorvastatin [Lipitor] 40 mg PO HS #90 tablet 03/04/23 01/27/24 Rx Aspirin [Adult Low Dose Aspirin EC] 81 mg PO DAILY 01/26/24 01/27/24 History Clopidogrel [Plavix] 75 mg PO HS 01/26/24 01/27/24 History Dapagliflozin Propanediol [Farxiga] 10 mg PO QAM 01/26/24 01/27/24 History Metoprolol Tartrate 25 mg PO BID 01/26/24 01/27/24 History amLODIPine [Norvasc] 2.5 mg PO QAM 01/26/24 01/27/24 History Allergies Allergy/AdvReac Type Severity Reaction Status Date / Time No Known Allergies Allergy Verified 01/29/24 02:53 Physical Exam Vitals: Vital Signs Temp Pulse Resp BP Pulse Ox 01/29/24 07:15 106 H 17 96/70 93 L 01/29/24 05:36 102 H 16 116/88 94 L 01/29/24 04:30 131 H 19 124/69 01/29/24 04:15 114 H 119/75 94 L 01/29/24 04:00 118 H 126/69 95 01/29/24 03:22 106 H 17 103/78 90 L 01/29/24 02:50 97.8 F 106 H 18 120/75 92 L Intake and Output 01/28/24 01/29/24 01/29/24 22:59 06:59 14:59 Other: Weight 122.47 kg Results 01/29/24 03:05 01/29/24 03:05 Cardiac Enzymes 01/29/24 Range/Units 03:05 AST 53 (17-59) U/L Coagulation 01/29/24 Range/Units 03:05 PT 11.1 (10.0-12.5) sec APTT 26.1 (22.0-30.0) sec CBC 01/29/24 Range/Units 03:05 WBC 9.2 (3.8-10.6) k/uL RBC 5.20 (4.30-5.90) m/uL Hgb 16.3 (13.0-17.5) gm/dL Hct 49.9 (39.0-53.0) % Plt Count 184 (150-450) k/uL Comprehensive Metabolic Panel 01/29/24 Range/Units 03:05 Sodium 137 (137-145) mmol/L Potassium 5.2 H (3.5-5.1) mmol/L Chloride 104 (98-107) mmol/L Carbon Dioxide 25 (22-30) mmol/L BUN 20 (9-20) mg/dL Creatinine 1.32 H (0.66-1.25) mg/dL Glucose 128 H (74-99) mg/dL Calcium 10.0 (8.4-10.2) mg/dL AST 53 (17-59) U/L ALT 26 (4-49) U/L Alkaline Phosphatase 90 (38-126) U/L Total Protein 7.2 (6.3-8.2) g/dL Albumin 4.6 (3.5-5.0) g/dL Current Medications Generic Name Dose Route Start Last Admin Trade Name Freq PRN Reason Stop Dose Admin Colchicine 0.6 mg 01/29/24 09:30 Colchicine 0.6 Mg Each PO DAILY [facility] Metoprolol Tartrate 75 mg 01/29/24 09:30 Metoprolol Tartrate 50 Mg Tab PO BID DORA Naloxone HCl 0.2 mg 01/29/24 03:56 Naloxone 0.4 Mg/Ml 1 Ml Vial IV Q2M PRN Opioid Reversal Ondansetron HCl 4 mg 01/29/24 03:56 Ondansetron 4 Mg/2 Ml Vial IVP Q8HR PRN Nausea And Vomiting Intake and Output 01/28/24 01/29/24 01/29/24 22:59 06:59 14:59 Other: Weight 122.47 kg 01/29/24 03:05 01/29/24 03:05
[2024-01-29] MEDS: METOPROLOL TARTRATE 25 MG TAB PO SCH (09:50)
[2024-01-29] MEDS: COLCHICINE 0.6 MG EACH PO SCH (10:30)
[2024-01-29] MEDS: APIXABAN 5 MG TAB PO SCH (16:46)
[2024-01-29] MEDS: ATORVASTATIN 40 MG TAB PO SCH (20:26)
[2024-01-29] MEDS: CLOPIDOGREL 75 MG TAB PO SCH (20:26)
[2024-01-29] MEDS ORDERED: METOPROLOL TARTRATE 50 MG TAB PO SCH (21:00)
[2024-01-30 02:02] VITALS: RESP 16
[2024-01-30 08:01] VITALS: BP 125/84; PULSE 60; TEMP 97.8
--- NOTE | 2024-01-30 09:31 | P.DS ---
Providers Date of admission: 01/29/24 03:57 Attending physician: Ubaldo Dan Primary care physician: Jose Luis Mix - Discharge Diagnosis(es) (1) Atrial fibrillation with rapid ventricular response Current Visit: Yes Status: Chronic (2) Post-op bleeding Current Visit: Yes Status: Resolved Hospital Course: Patient is a pleasant 74-year-old male who presented to the hospital with complaints of a catheter site bleed, and was subsequently found to be in A-fib with RVR. Patient had a atrial fibrillation ablation approximately 2 days prior, and afterwards went home and noticed that his catheter site was oozing blood. He attempted to stop the bleeding with gauze and towels at home without success. He returned back to the hospital to be evaluated. Cardiology was contacted and advised the emergency department to stitch a gauze into place over the site. Patient was evaluated yesterday in the emergency department, and was found to be in A-fib with mild RVR. This is expected after a ablation, as the tissue dies over period of time. The catheter site at that time was clean, dry, and intact, with no signs of bleeding or hematoma noted. Medications were adjusted and the patient was admitted for continued evaluation. Overnight the patient had no events, and converted back to normal sinus rhythm after increasing his metoprolol. This morning the patient reports that he is feeling fine. He is denying chest pain, shortness of breath, heart palpitations, bleeding. The catheter site remains without any signs of bleeding. Assessment: GENERAL: Well-appearing, well-nourished and in no acute distress. NECK: Supple without JVD or thyromegaly. LUNGS: Breath sounds clear to auscultation bilaterally. Respiration equal and unlabored. No wheezes, rales or rhonchi. HEART: Regular rate and rhythm without murmurs, rubs or gallops. S1 and S2 heard. EXTREMITIES: Normal range of motion, no edema. No clubbing or cyanosis. Peripheral pulses intact and strong. VITALS: Temp 97.8, pulse 60, respirations 16, blood pressure 125/84, O2 saturation 94% on room air TELEMETRY: Sinus mechanism LABS: White count 9.2, hemoglobin 16.3, platelets 184, sodium 137, potassium 5.2, BUN 20, creatinine 1.32, calcium 10 Patient Condition at Discharge: Good Plan - Discharge Summary New Discharge Prescriptions: New Colchicine [Colcrys] 0.6 mg PO DAILY #10 tablet Metoprolol Tartrate [Lopressor] 75 mg PO BID #180 tab Discontinued Metoprolol Tartrate 25 mg PO BID amLODIPine [Norvasc] 2.5 mg PO DAILY No Action Apixaban [Eliquis] 5 mg PO BID #180 tab Tamsulosin [Flomax] 0.4 mg PO HS Losartan [Cozaar] 25 mg PO DAILY Albuterol Sulfate [Ventolin HFA] 2 puff INHALATION RT-QID PRN PRN Reason: Shortness Of Breath Atorvastatin [Lipitor] 40 mg PO HS #90 tablet Aspirin [Adult Low Dose Aspirin EC] 81 mg PO DAILY Clopidogrel [Plavix] 75 mg PO HS Dapagliflozin Propanediol [Farxiga] 10 mg PO DAILY Discharge Medication List Losartan [Cozaar] 25 mg PO DAILY 10/01/22 [History] Tamsulosin [Flomax] 0.4 mg PO HS 10/01/22 [History] Albuterol Sulfate [Ventolin HFA] 2 puff INHALATION RT-QID PRN 03/01/23 [History] Apixaban [Eliquis] 5 mg PO BID #180 tab 03/04/23 [Rx] Atorvastatin [Lipitor] 40 mg PO HS #90 tablet 03/04/23 [Rx] Aspirin [Adult Low Dose Aspirin EC] 81 mg PO DAILY 01/26/24 [History] Clopidogrel [Plavix] 75 mg PO HS 01/26/24 [History] Dapagliflozin Propanediol [Farxiga] 10 mg PO DAILY 01/26/24 [History] Colchicine [Colcrys] 0.6 mg PO DAILY #10 tablet 01/30/24 [Rx] Metoprolol Tartrate [Lopressor] 75 mg PO BID #180 tab 01/30/24 [Rx] Follow up Appointment(s)/Referral(s): Kevin Barajas MD [Medical Doctor] - 1 Week Jose Luis Mix DO [Primary Care Provider] - 1-2 days Activity/Diet/Wound Care/Special Instructions: colchicine for 1 week metoprolol 75 bid stop amlodipine f/u suture removal wednesday Discharge Disposition: HOME SELF-CARE
[2024-01-30 09:57] LABS: Blood Urea Nitrogen 24.9 mg/dL (9.0-27.0); Carbon Dioxide 30.3 mmol/L (21.6-31.8); Chloride 103 mmol/L (96-109); Glucose 112 mg/dL (70-110); Potassium 4.8 mmol/L (3.5-5.5); Sodium 140 mmol/L (135-145)
[2024-01-30 09:58] LABS: ALT 19 U/L (10-49); AST 29 U/L (14-35); Alkaline Phosphatase 91 U/L (41-126); Calcium 8.9 mg/dL (8.7-10.3); Globulin 2.1 g/dL (1.6-3.3); Total Bilirubin 0.5 mg/dL (0.3-1.2); Total Protein 6.1 g/dL (6.2-8.2)
[2024-01-30 13:19] LABS: Basophils # (A) 0.07 X 10*3/uL (0.00-0.10); Basophils % (A) 0.8 %; Eosinophils # (A) 0 X 10*3/uL (0.04-0.35); Eosinophils % (A) 0 %; HCT 46.9 % (39.6-50.0); HGB 13.9 g/dL (13.0-17.0); Lymphocytes # (A) 2.02 X 10*3/uL (0.90-5.00); Lymphocytes % (A) 23.8 %; MCH 29.7 pg (27.0-32.0); MCHC 29.6 g/dL (32.0-37.0); MCV 100.2 FL (80.0-97.0); Mean Platelet Volume 11.3 FL (9.5-12.2); Monocytes # (A) 1.02 X 10*3/uL (0.20-1.00); NRBC Per 100 WBC 0 X 10*3/uL (0.00-0.01); Neutrophils # (A) 5.35 X 10*3/uL (1.80-7.70); Neutrophils % (A) 63.3 %; Platelet Count 173 X 10*3/uL (140-440); RBC 4.68 X 10*6/uL (4.40-5.60); RDW 12.6 % (11.5-14.5); WBC 8.47 X 10*3/uL (4.50-10.00)
== END 2024-01-30 11:50 | disposition home or self-care (01) ==
LOC: EC 02:47 → 6NMEDSUR 03:57
PROVIDERS: ADMIT Internal Medicine Clinical Cardiac Electrophysiology; ATTEND Internal Medicine Clinical Cardiac Electrophysiology
DX: L76.22 Postprocedural hemorrhage of skin and subcutaneous tissue following other procedure (principal); I48.91 Unspecified atrial fibrillation; I10 Essential (primary) hypertension; E78.5 Hyperlipidemia, unspecified; J44.9 Chronic obstructive pulmonary disease, unspecified; N40.0 Benign prostatic hyperplasia without lower urinary tract symptoms; Z79.01 Long term (current) use of anticoagulants; Z79.82 Long term (current) use of aspirin; Z79.899 Other long term (current) drug therapy; Z85.828 Personal history of other malignant neoplasm of skin; Z87.891 Personal history of nicotine dependence; Y83.8 Other surgical procedures as the cause of abnormal reaction of the patient, or of later complication, without mention of misadventure at the time of the procedure
CPT/HCPCS: 99284; 12020; 36415; 93005; 80053 ×2; 85025 ×2; 85610; 85730; 71045; G0378 ×2

== ENCOUNTER → 2024-05-10 | Outpatient (CLI) | payer MEDICARE ==
[2024-05-10 15:34] LABS: BUN/Creat Ratio 13.43 Ratio (12.00-20.00); Blood Urea Nitrogen 18.8 mg/dL (9.0-27.0); Calcium 9.4 mg/dL (8.7-10.3); Carbon Dioxide 26.8 mmol/L (21.6-31.8); Chloride 104 mmol/L (96-109); Glucose 109 mg/dL (70-110); Potassium 5.2 mmol/L (3.5-5.5); Sodium 142 mmol/L (135-145)
== END | disposition home or self-care (01) ==
LOC: LABWHC1 09:40
PROVIDERS: ATTEND Internal Medicine Clinical Cardiac Electrophysiology
DX: Z00.00 Encounter for general adult medical examination without abnormal findings (principal)
CPT/HCPCS: 36415; 80048; 83036; 84443

== ENCOUNTER → 2024-05-24 | Outpatient (CLI) | payer MEDICARE ==
[2024-05-24 14:23] VITALS: BP 127/87; PULSE 116; RESP 16; TEMP 97.4
--- NOTE | 2024-05-24 14:58 | P.SLEEP ---
History of Present Illness DATE: 05/24/2024 CONSULTATION/NEW PATIENT EVALUATION HISTORY OF PRESENT ILLNESS/SLEEP-WAKE EVALUATION: 74-year-old gentleman had be en evaluated in the sleep center for possible obstructive sleep apnea hypopnea syndrome. SLEEP SCHEDULE: Usually sleep schedule from 10 PM to 56 AM. FALLING ASLEEP: Usually no significant problems with falling asleep. DURING SLEEP: Patient wakes up every 2 hours to go to the restroom, positive history of snoring. No history of hypnogogical hallucinations, sleep paralysis, or cataplexy. DURING THE DAY/WAKE STATE: Patient may feel sleepy during the day. [place] sleepiness scale is 12. Patient takes up to 3 naps during the day. PAST MEDICAL HISTORY: Coronary artery disease, status post 4 stent insertions, atrial fibrillation, nasal polyps, hypertension. PAST SURGICAL HISTORY: For stent insertions to coronary arteries, cardiac ablation for atrial fibrillation. MEDICATIONS: Please see below. SOCIAL HISTORY: Please see below. FAMILY HISTORY: Please see below. REVIEW OF SYSTEMS: Snoring, multiple awakenings from sleep, sleepiness during the day. No fevers. No double vision. No recent chest pain. No shortness of breath. No abdominal pain. No bleeding episodes. No blood in urine. No seizure episodes. PHYSICAL EXAMINATION: GENERAL: A pleasant patient without any distress. VITAL SIGNS: Please see below, weight 266 pounds, BMI 41.0. HEENT: PERRLA, EOMI. Evaluation of oropharynx showed tongue protrudes midline, low position of soft palate Mallampati 3. NECK: Supple. No JVD. Thyroid is not palpable. 18.5 inches in circumference. LUNGS: Clear to percussion and to auscultation. Good air exchange. No wheezing or rhonchi. HEART: S1, S2 irregularly, irregular. No murmurs, gallops or rubs. ABDOMEN: Soft and nontender. Bowel sounds are present. No organomegaly appreciated. Obese EXTREMITIES: No clubbing or cyanosis. CLASSIFICATION ANALYST: Awake, alert, and oriented x3. Cranial nerves 2 to 7 intact. There is no fasciculation or atrophy noted. No focal deficits observed. ASSESSMENT: 1. Snoring, multiple awakenings from sleep, low position of soft palate Mallampati 3, wide neck 18.5 inches in circumference, sleepiness with [place] Sleepiness Scale 12. Obstructive sleep apnea. 2. Obesity, BMI 41.0. 3. Atrial fibrillation, status post cardiac ablation. 4. Coronary artery disease, status post 4 stents insertions. 5 history of nasal polyps. Restriction of nasal breathing. PLAN: 1. Polysomnography for evaluation of patient's breathing during sleep. 2. CPAP/BiPAP titration if sleep study confirms obstructive sleep apnea- hypopnea syndrome. 3. Preferable position during sleep on the side. 4. No driving if patient feels any sleepiness. Patient is aware of civil and criminal liability for unsafe driving. 5. Sleep hygiene with regular sleep time for at least 7.5-8 hours. 6. Watching and losing weight. Thank you very much for referring this patient for consultation. Sincerely, Ricardo Camargo MD, PhD, FAASM. Diplomat of [employer], Sleep Medicine Board by [employer] of [facility] [place] cc: Ubaldo Dan MD, Jose Luis Mix DO Past Medical History Past Medical History: Atrial Fibrillation, Cancer, COPD, Hyperlipidemia, Hypertension, Prostate Disorder Additional Past Medical History / Comment(s): See Cardiology H&P. HX SKIN CANCER. History of Any Multi-Drug Resistant Organisms: None Reported Past Surgical History: Hernia Repair Additional Past Surgical History / Comment(s): BILATERAL CATARACTS REMOVED WITH LENS IMPLANTS, REPAIR DETACHED LEFT RETINA, SKIN CANCER REMOVED FROM NECK AND RIGHT WRIST, HERNIA REPAIR X2, COLONOSCOPY. Past Anesthesia/Blood Transfusion Reactions: No Reported Reaction Past Psychological History: No Psychological Hx Reported Smoking Status: Former smoker Past Alcohol Use History: Rare Additional Past Alcohol Use History / Comment(s): QUIT SMOKING JUNE 2022, SMOKED OFF AND ON SINCE AGE 16. Past Drug Use History: None Reported - Past Family History Sister(s) Family Medical History: Cancer Father Family Medical History: Coronary Artery Disease (CAD), GERD/Reflux, Hyperlipidemia, Hypertension, Rheumatoid Arthritis (RA) Brother(s) Family Medical History: Diabetes Mellitus Medications and Allergies Home Medications Medication Instructions Recorded Confirmed Type Losartan [Cozaar] 25 mg PO DAILY 10/01/22 05/24/24 History Tamsulosin [Flomax] 0.4 mg PO HS 10/01/22 05/24/24 History Albuterol Sulfate [Ventolin HFA] 2 puff INHALATION RT-QID PRN 03/01/23 05/24/24 History Apixaban [Eliquis] 5 mg PO BID #180 tab 03/04/23 05/24/24 Rx Atorvastatin [Lipitor] 40 mg PO HS #90 tablet 03/04/23 05/24/24 Rx Aspirin [Adult Low Dose Aspirin EC] 81 mg PO DAILY 01/26/24 01/29/24 History Clopidogrel [Plavix] 75 mg PO HS 01/26/24 05/24/24 History Dapagliflozin Propanediol [Farxiga] 10 mg PO DAILY 01/26/24 05/24/24 History Colchicine [Colcrys] 0.6 mg PO DAILY #10 tablet 01/30/24 Rx Metoprolol Tartrate [Lopressor] 75 mg PO BID #180 tab 01/30/24 05/24/24 Rx Allergies Allergy/AdvReac Type Severity Reaction Status Date / Time No Known Allergies Allergy Verified 01/29/24 09:52 Physical Exam Vitals: Vital Signs Temp Pulse Resp BP Pulse Ox 05/24/24 14:20 97.4 F L 116 H 16 127/87 94 L Intake and Output 05/23/24 05/24/24 05/24/24 22:59 06:59 14:59 Other: Weight 120.656 kg Sleep Note - Sleep Data ESS Total: 12 - Sleep Note Sleep Note: Temperature: 97.4 F Pulse Rate: 116 Respiratory Rate: 16 Blood Pressure: 127/87 SpO2: 94 Height: 5 ft 7.5 in Weight: 120.656 kg BMI: Neck Circumference: 18.5
== END ==
LOC: 3 N SLEEP 13:50
PROVIDERS: ATTEND Internal Medicine
DX: G47.33 Obstructive sleep apnea (adult) (pediatric) (principal); E66.01 Morbid (severe) obesity due to excess calories; I48.91 Unspecified atrial fibrillation; I25.10 Atherosclerotic heart disease of native coronary artery without angina pectoris; Z86.0100 Personal history of colon polyps, unspecified; Z68.41 Body mass index [BMI] 40.0-44.9, adult
CPT/HCPCS: 99211

== ENCOUNTER 2024-06-19 10:25 | Inpatient (IN) | payer MEDICARE ==
[2024-06-19] MEDS ORDERED: MAGNESIUM SULFATE-D5W PMX 1 GM in DEXTROSE/WATER 1 100ML.BAG IVPB PRN (10:49)
[2024-06-19 11:56] LABS: African American GFR (CKD) 55 (>60 ml/min/1.73 sqM); Anion Gap 12 mmol/L; Blood Urea Nitrogen 26 mg/dL (9-20); Calcium 9.4 mg/dL (8.4-10.2); Carbon Dioxide 25 mmol/L (22-30); Chloride 107 mmol/L (98-107); Glucose 118 mg/dL (74-99); Magnesium 1.9 mg/dL (1.6-2.3); Non-African American GFR(CKD) 47 (>60 ml/min/1.73 sqM); Potassium 4.6 mmol/L (3.5-5.1); Sodium 144 mmol/L (137-145)
[2024-06-19] MEDS: METOPROLOL TARTRATE 50 MG TAB PO SCH (15:03)
[2024-06-19] MEDS: DOFETILIDE 250 MCG CAP PO ONE (17:57)
[2024-06-19] MEDS ORDERED: DOFETILIDE 250 MCG CAP PO SCH (18:00)
--- NOTE | 2024-06-19 18:11 | P.HPCAR ---
History of Present Illness This is Dr. Dan dictating an H/P on this patient The patient was interviewed and examined IMPRESSION / ASSESSMENT: Persistent atrial fibrillation despite AF ablation with PVI and ablation in the left atrial septum Symptomatic shortness of breath tiredness fatigue CAD status post stenting to the RCA in February 2023 Underlying sick sinus syndrome, normal TSH Creatinine clearance 77 Borderline normal LV function on echo EF 50-55% PLAN: Admit for initiation of dofetilide per protocol, 250 mcg this evening Electrical cardioversion if indicated Continue atorvastatin Eliquis Farxiga losartan Increase the dose of metoprolol to 100 mg 3 times a day since the patient has A- fib with RVR at this time Continue Plavix HPI Patient remains in A-fib with RVR despite A-fib ablation. He is quite symptomatic with shortness of breath tiredness and fatigue Despite 100 mg twice daily of metoprolol, his rates are still elevated ROS: No fever chills or rigors, no cough, phlegm or expectoration, no nausea, vomiting or diarrhea, no hematuria, dysuria, no musculoskeletal complaints, no strokes or seizures, no skin lesions. EXAMINATION: 111/78 mmHg, ventricular rate 118 beats a minute afebrile Breath sounds are reduced bilaterally with no rhonchi no crackles heart sounds are tachycardic irregular REVIEW OF LABS, ECG & MEDICAL DATA Sodium 144, potassium 4.6 BUN 26 and creatinine 1.45 TSH normal at 2.6 Magnesium 1.9 Calculated creatinine clearance based on BMI is 77 Physical Exam Vitals: Vital Signs Temp Pulse Resp BP Pulse Ox 06/19/24 14:58 97.7 F 118 H 20 111/78 94 L 06/19/24 14:46 98.3 F 118 H 16 115/84 92 L 06/19/24 14:00 118 H 20 Intake and Output 06/19/24 06/19/24 06/19/24 06:59 14:59 22:59 Intake Total 240 Balance 240 Intake: Oral 240 Other: Voiding Method Toilet # Voids 2 Weight 119.748 kg Past Medical History Past Medical History: Atrial Fibrillation, Cancer, COPD, Hyperlipidemia, Hypertension, Prostate Disorder Additional Past Medical History / Comment(s): See Cardiology H&P. HX SKIN CANCER. History of Any Multi-Drug Resistant Organisms: None Reported Past Surgical History: Hernia Repair Additional Past Surgical History / Comment(s): BILATERAL CATARACTS REMOVED WITH LENS IMPLANTS, REPAIR DETACHED LEFT RETINA, SKIN CANCER REMOVED FROM NECK AND RIGHT WRIST, HERNIA REPAIR X2, COLONOSCOPY. Past Anesthesia/Blood Transfusion Reactions: No Reported Reaction Past Psychological History: No Psychological Hx Reported Smoking Status: Former smoker Past Alcohol Use History: Rare Additional Past Alcohol Use History / Comment(s): QUIT SMOKING 2023. Past Drug Use History: None Reported - Past Family History Sister(s) Family Medical History: Cancer Father Family Medical History: Coronary Artery Disease (CAD), GERD/Reflux, Hyperlipide louie, Hypertension, Rheumatoid Arthritis (RA) Brother(s) Family Medical History: Diabetes Mellitus Physical Examination Vital Signs Temp Pulse Resp BP Pulse Ox 06/19/24 14:58 97.7 F 118 H 20 111/78 94 L 06/19/24 14:46 98.3 F 118 H 16 115/84 92 L 06/19/24 14:00 118 H 20 Intake and Output 06/19/24 06/19/24 06/19/24 06:59 14:59 22:59 Intake Total 240 Balance 240 Intake: Oral 240 Other: Voiding Method Toilet # Voids 2 Weight 119.748 kg Results 06/19/24 11:05 Comprehensive Metabolic Panel 06/19/24 Range/Units 11:05 Sodium 144 (137-145) mmol/L Potassium 4.6 (3.5-5.1) mmol/L Chloride 107 (98-107) mmol/L Carbon Dioxide 25 (22-30) mmol/L BUN 26 H (9-20) mg/dL Creatinine 1.45 H (0.66-1.25) mg/dL Glucose 118 H (74-99) mg/dL Calcium 9.4 (8.4-10.2) mg/dL Current Medications Generic Name Dose Route Start Last Admin Trade Name Freq PRN Reason Stop Dose Admin Apixaban 5 mg 06/19/24 21:00 Apixaban 5 Mg Tab PO BID [facility] Protocol Atorvastatin Calcium 40 mg 06/19/24 21:00 Atorvastatin 40 Mg Tab PO HS [facility] Clopidogrel Bisulfate 75 mg 06/20/24 09:00 Clopidogrel 75 Mg Tab PO DAILY [facility] Dapagliflozin 10 mg 06/20/24 09:00 Dapagliflozin Propanediol 10 Mg Tablet PO DAILY [facility] Magnesium Sulfate/Dextrose 1 100 mls @ 100 mls/hr 06/19/24 10:49 gm/ IV Solution IVPB 06/26/24 23:00 Q1H PRN FOR TIKOSYN Losartan Potassium 25 mg 06/20/24 09:00 Losartan 25 Mg Tab PO DAILY [facility] Magnesium Oxide 400 mg 06/20/24 09:00 Magnesium Oxide 400 Mg Tab PO DAILY [facility] Metoprolol Tartrate 100 mg 06/19/24 16:00 06/19/24 15:03 Metoprolol Tartrate 50 Mg Tab PO 100 mg TID [facility] Administration Tamsulosin HCl 0.4 mg 06/20/24 08:30 Tamsulosin 0.4 Mg Cap.Er.24h PO PC-BRKFST [facility] Intake and Output 06/19/24 06/19/24 06/19/24 06:59 14:59 22:59 Intake Total 240 Balance 240 Intake: Oral 240 Other: Voiding Method Toilet # Voids 2 Weight 119.748 kg Patient Weight 06/20/24 06:59 Weight 119.748 kg 06/19/24 11:05
[2024-06-19] MEDS ORDERED: METOPROLOL TARTRATE 50 MG TAB PO SCH (21:00)
[2024-06-19] MEDS: APIXABAN 5 MG TAB PO SCH (21:23)
[2024-06-19] MEDS: ATORVASTATIN 40 MG TAB PO SCH (21:23)
[2024-06-20] MEDS: DOFETILIDE 250 MCG CAP PO ONE ×2 (06:15→17:45)
[2024-06-20 07:35] LABS: African American GFR (CKD) 71 (>60 ml/min/1.73 sqM); Anion Gap 6 mmol/L; Blood Urea Nitrogen 23 mg/dL (9-20); Calcium 9.2 mg/dL (8.4-10.2); Carbon Dioxide 28 mmol/L (22-30); Chloride 104 mmol/L (98-107); Glucose 111 mg/dL (74-99); Magnesium 1.8 mg/dL (1.6-2.3); Non-African American GFR(CKD) 61 (>60 ml/min/1.73 sqM); Potassium 4.7 mmol/L (3.5-5.1); Sodium 138 mmol/L (137-145)
[2024-06-20] MEDS: DAPAGLIFLOZIN PROPANEDIOL 10 MG TABLET PO SCH (09:15)
[2024-06-20] MEDS: TAMSULOSIN 0.4 MG CAP.ER.24H PO SCH (09:15)
[2024-06-20] MEDS: CLOPIDOGREL 75 MG TAB PO SCH (09:15)
[2024-06-20] MEDS: MAGNESIUM OXIDE 400 MG TAB PO SCH (09:16)
[2024-06-20] MEDS: LOSARTAN 25 MG TAB PO SCH (09:16)
--- NOTE | 2024-06-20 11:03 | P.PN ---
Progress Note - Text Patient admitted for management of persistent atrial fibrillation and failed A- fib ablation He received dofetilide 250 mcg twice daily. This morning was his second dose With the first 2 doses his atrial fibrillation organized to typical atrial flutter 5 hours after the second dose, he converted from atrial flutter to sinus rhythm His follow-up twelve-lead EKG shows sinus rhythm normal DE interval incomplete right bundle branch block and an absolute QT interval of about 460-480 ms Lead II and the rest of the limb leads show a QT interval of about 460 ms Lead V5 shows a QT interval closer to 480 ms He is doing well his renal function has improved Sodium 138 potassium 4.7 BUN 23 creatinine 1.2 which is down from 1.45 Magnesium 1.8 today TSH 2.6 which is normal Blood pressure 118/83 mmHg pulse rate in the 80s and 90s afebrile Breath sounds are clear no rhonchi no crackles Heart sounds were irregular when I examined him. At that time he was in typical atrial flutter with a controlled ventricular response Lying comfortably in bed no orthopnea or PND Impression Persistent atrial fibrillation that did not respond to A-fib ablation Initiated dofetilide as an inpatient Atrial fibrillation organized typical atrial flutter and so please clinically then converted to sinus rhythm Absolute QT interval of 460-480 ms Plan Initiate Aldactone 12.5 mg p.o. daily and increase tomorrow Continue dofetilide 250 mcg twice daily and monitor QT interval and daily labs Consider atrial flutter ablation in the future Continue Pradaxa
[2024-06-20] MEDS: SPIRONOLACTONE 25 MG TAB PO SCH (11:34)
[2024-06-20] MEDS: METOPROLOL TARTRATE 50 MG TAB PO SCH (20:25)
[2024-06-21] MEDS: DOFETILIDE 250 MCG CAP PO ONE ×2 (06:03→17:50)
[2024-06-21 08:04] LABS: African American GFR (CKD) 48 (>60 ml/min/1.73 sqM); Anion Gap 12 mmol/L; Blood Urea Nitrogen 30 mg/dL (9-20); Calcium 9.1 mg/dL (8.4-10.2); Carbon Dioxide 21 mmol/L (22-30); Chloride 101 mmol/L (98-107); Magnesium 2.1 mg/dL (1.6-2.3); Non-African American GFR(CKD) 41 (>60 ml/min/1.73 sqM); Potassium 5.2 mmol/L (3.5-5.1); Sodium 134 mmol/L (137-145)
[2024-06-21] MEDS: SODIUM CHLORIDE 0.9% 500 ML 500 ML IV ONE (10:18)
--- NOTE | 2024-06-21 11:57 | P.PN ---
Subjective Progress Note Date: 06/21/24 Patient admitted for management of persistent atrial fibrillation and failed A- fib ablation He received dofetilide 250 mcg twice daily. With the first 2 doses his atrial fibrillation organized to typical atrial flutter 5 hours after the second dose, he converted from atrial flutter to sinus rhythm His follow-up twelve-lead EKG shows sinus rhythm normal [place] interval incomplete right bundle branch block and an absolute QT interval of about 480 ms He is doing well His renal function has worsened Sodium 134 potassium 5.2 BUN 30 creatinine 1.2 which is down from 1.63 Magnesium 2.1 today TSH 2.6 which is normal Blood pressure 110/73 mmHg pulse rate in the60s afebrile Breath sounds are clear no rhonchi no crackles Heart sounds were irregular when I examined him. At that time he was in typical atrial flutter with a controlled ventricular response Lying comfortably in bed no orthopnea or PND Impression Persistent atrial fibrillation that did not respond to A-fib ablation Initiated dofetilide as an inpatient Atrial fibrillation organized typical atrial flutter and so please clinically then converted to sinus rhythm Absolute QT interval of 460-480 ms Acute kidney injury Hyperkalemia Plan Discontinue Aldactone IV fluid bolus 250 mL Add incentive spirometry Continue dofetilide 250 mcg twice daily and monitor QT interval and daily labs Consider atrial flutter ablation in the future Continue Tramaine Nurse practitioner note has been reviewed, I agree with documented findings and plan of care. Patient was seen and examined. Objective - Vital Signs Vital signs: Vital Signs Temp 97.4 F L 06/21/24 04:37 Pulse 54 L 06/21/24 06:01 Resp 16 06/21/24 06:01 BP 90/61 06/21/24 06:01 Pulse Ox 94 L 06/21/24 06:01 FiO2 Intake & Output 06/20/24 06/21/24 06/21/24 18:59 06:59 18:59 Intake Total 1080 600 Balance 1080 600 Weight 121 kg Intake: Oral 1080 600 Other: Voiding Method Toilet Toilet # Voids 2 3 - Labs CBC & Chem 7: 06/21/24 06:28 Labs: Abnormal Lab Results - Last 24 Hours (Table) 06/21/24 Range/Units 06:28 Sodium 134 L (137-145) mmol/L Potassium 5.2 H (3.5-5.1) mmol/L Carbon Dioxide 21 L (22-30) mmol/L BUN 30 H (9-20) mg/dL Creatinine 1.63 H (0.66-1.25) mg/dL Glucose 123 H (74-99) mg/dL
[2024-06-21 14:28] LABS: Glucose 123 mg/dL (74-99)
[2024-06-21 14:42] LABS: African American GFR (CKD) 57 (>60 ml/min/1.73 sqM); Anion Gap 11 mmol/L; Blood Urea Nitrogen 30 mg/dL (9-20); Calcium 8.8 mg/dL (8.4-10.2); Carbon Dioxide 23 mmol/L (22-30); Chloride 99 mmol/L (98-107); Glucose 113 mg/dL (74-99); Non-African American GFR(CKD) 49 (>60 ml/min/1.73 sqM); Potassium 4.9 mmol/L (3.5-5.1); Sodium 133 mmol/L (137-145)
[2024-06-22] MEDS: DOFETILIDE 250 MCG CAP PO ONE ×2 (06:00→17:50)
[2024-06-22 09:19] LABS: Basophils # (A) 0.08 10*3/uL (0.00-0.10); HCT 46.6 % (39.6-50.0); HGB 14.6 g/dL (13.0-17.0); Lymphocytes # (A) 1.56 10*3/uL (0.90-5.00); Lymphocytes % (A) 19.8 %; MCHC 31.3 g/dL (32.0-37.0); MCV 95.7 fL (80.0-97.0); Mean Platelet Volume 11.6 fL (9.5-12.2); Monocytes # (A) 0.72 10*3/uL (0.20-1.00); Monocytes % (A) 9.1 %; Platelet Count 157 10*3/uL (140-440); RBC 4.87 10*6/uL (4.40-5.60); RDW 13.5 % (11.5-14.5); WBC 7.87 10*3/uL (4.50-10.00)
[2024-06-22 09:38] LABS: African American GFR (CKD) 51 (>60 ml/min/1.73 sqM); Anion Gap 10 mmol/L; Blood Urea Nitrogen 31 mg/dL (9-20); Calcium 8.9 mg/dL (8.4-10.2); Carbon Dioxide 24 mmol/L (22-30); Chloride 103 mmol/L (98-107); Glucose 144 mg/dL (74-99); Magnesium 2.1 mg/dL (1.6-2.3); Non-African American GFR(CKD) 44 (>60 ml/min/1.73 sqM); Potassium 5.1 mmol/L (3.5-5.1); Sodium 137 mmol/L (137-145)
[2024-06-22] MEDS: SODIUM CHLORIDE 0.9% 500 ML 250 ML IV ONE (09:55)
--- NOTE | 2024-06-22 13:07 | P.PN ---
Subjective Progress Note Date: 06/22/24 Patient admitted for management of persistent atrial fibrillation and failed A- fib ablation He received dofetilide 250 mcg twice daily. With the first 2 doses his atrial fibrillation organized to typical atrial flutter 5 hours after the second dose, he converted from atrial flutter to sinus rhythm His follow-up twelve-lead EKG shows sinus rhythm normal [place] interval incomplete right bundle branch block and an absolute QT interval of about 480 ms He is doing well His renal function is slightly up from yesterday. He received fluid bolus of 250 mL yesterday. Patient states he is drinking lots of fluids. Sodium 137 potassium 5.1 BUN 31 creatinine 1.54 which is up from 1.42 Magnesium 2.1 today TSH 2.6 which is normal Blood pressure 106/70 mmHg pulse rate in the 50s afebrile Breath sounds are clear no rhonchi no crackles Heart sounds were irregular when I examined him. At that time he was in typical atrial flutter with a controlled ventricular response Lying comfortably in bed no orthopnea or PND Impression Persistent atrial fibrillation that did not respond to A-fib ablation Initiated dofetilide as an inpatient Atrial fibrillation organized typical atrial flutter and so please clinically then converted to sinus rhythm Absolute QT interval of 460-480 ms Acute kidney injury possibly due to hypotension and bradycardia Hyperkalemia Plan Discontinue Aldactone Discontinue losartan Decrease metoprolol tartrate to 50 mg twice daily Repeat IV fluid bolus 250 mL Continue incentive spirometry Continue dofetilide 250 mcg twice daily and monitor QT interval and daily labs Consider atrial flutter ablation in the future Continue Eliquis Nurse practitioner note has been reviewed, I agree with documented findings and plan of care. Patient was seen and examined. Objective - Vital Signs Vital signs: Vital Signs Temp 97.9 F 06/22/24 03:33 Pulse 52 L 06/22/24 05:57 Resp 18 06/22/24 05:57 BP 115/66 06/22/24 05:57 Pulse Ox 92 L 06/22/24 05:57 FiO2 Intake & Output 06/21/24 06/22/24 06/22/24 18:59 06:59 18:59 Intake Total 2940 500 236 Balance 2940 500 236 Weight 122.2 kg Intake: Oral 2940 500 236 Other: Voiding Method Toilet Toilet # Voids 5 2 - Labs CBC & Chem 7: 06/22/24 07:55 06/23/24 07:35 Labs: Abnormal Lab Results - Last 24 Hours (Table) 06/21/24 06/21/24 06/22/24 Range/Units 06:28 14:14 07:55 MCHC (32.0-37.0) g/dL Eosinophils # (0.04-0.35) 10*3/uL Sodium 133 L (137-145) mmol/L BUN 30 H 31 H (9-20) mg/dL Creatinine 1.42 H 1.54 H (0.66-1.25) mg/dL Glucose 123 H 113 H 144 H (74-99) mg/dL 06/22/24 Range/Units 07:55 MCHC 31.3 L (32.0-37.0) g/dL Eosinophils # 0.00 L (0.04-0.35) 10*3/uL Sodium (137-145) mmol/L BUN (9-20) mg/dL Creatinine (0.66-1.25) mg/dL Glucose (74-99) mg/dL
[2024-06-22 16:45] VITALS: RESP 18
[2024-06-22] MEDS: METOPROLOL TARTRATE 50 MG TAB PO SCH (19:48)
[2024-06-23] MEDS: DOFETILIDE 250 MCG CAP PO ONE ×2 (06:40)
[2024-06-23 08:21] LABS: African American GFR (CKD) 64 (>60 ml/min/1.73 sqM); Anion Gap 11 mmol/L; Blood Urea Nitrogen 26 mg/dL (9-20); Calcium 9.6 mg/dL (8.4-10.2); Carbon Dioxide 24 mmol/L (22-30); Chloride 103 mmol/L (98-107); Glucose 114 mg/dL (74-99); Magnesium 2.3 mg/dL (1.6-2.3); Non-African American GFR(CKD) 56 (>60 ml/min/1.73 sqM); Potassium 4.9 mmol/L (3.5-5.1); Sodium 138 mmol/L (137-145)
[2024-06-23 10:58] VITALS: TEMP 97.9
[2024-06-23] MEDS: LOSARTAN 25 MG TAB PO SCH (12:55)
--- NOTE | 2024-06-23 12:56 | P.PN ---
Progress Note - Text Not stop Xarelto patient was admitted to the hospital for initiation of dofetilide 250 mcg twice daily was begun. After the third dose he organized to typical atrial flutter and thereafter converted to sinus rhythm. He has maintained sinus rhythm thereafter There was a mild increase in his creatinine but his creatinine clearance remained at 74 mL/min Absolute QT interval ranged from 440-480 ms No arrhythmias Sinus bradycardia was noted and the dose of beta-mikhail was reduced to 50 mg twice daily, metoprolol Losartan was reduced to 12.5 mg p.o. daily Patient is a prediabetic hemoglobin A1c 6.2 and the importance of diabetes management and weight loss was explained for both management of diabetes and atrial fibrillation Oral magnesium Dofetilide 250 mcg twice daily at discharge Continue anticoagulation with Eliquis Continue all other medications as before Follow-up with Dr. Lawrence in 1 week Follow-up with Dr. Dan in 3 to 4 months I will schedule an atrial flutter ablation for him. He will continue Eliquis periprocedure Very detailed discussion regarding dofetilide education and do's and don'ts as well as precautions to be taken with dofetilide use
--- NOTE | 2024-06-23 14:06 | P.DS ---
Providers Date of admission: 06/19/24 10:25 Attending physician: Ubaldo Dan Primary care physician: Jose Luis Maria Del [facility] Course: Not stop Xarelto patient was admitted to the hospital for initiation of dofetilide 250 mcg twice daily was begun. After the third dose he organized to typical atrial flutter and thereafter converted to sinus rhythm. He has maintained sinus rhythm thereafter There was a mild increase in his creatinine but his creatinine clearance remained at 74 mL/min Absolute QT interval ranged from 440-480 ms No arrhythmias Sinus bradycardia was noted and the dose of beta-mikhail was reduced to 50 mg twice daily, metoprolol Losartan was reduced to 12.5 mg p.o. daily Patient is a prediabetic hemoglobin A1c 6.2 and the importance of diabetes management and weight loss was explained for both management of diabetes and atrial fibrillation Oral magnesium Dofetilide 250 mcg twice daily at discharge Continue anticoagulation with Eliquis Continue all other medications as before Follow-up with Dr. Lawrence in 1 week Follow-up with Dr. Dan in 3 to 4 months I will schedule an atrial flutter ablation for him. He will continue Eliquis periprocedure Very detailed discussion regarding dofetilide education and do's and don'ts as well as precautions to be taken with dofetilide use Nurse practitioner note has been reviewed, I agree with documented findings and plan of care. Patient was seen and examined. Patient Condition at Discharge: Stable Plan - Discharge Summary Discharge Rx Participant: No New Discharge Prescriptions: New Losartan [Cozaar] 12.5 mg PO DAILY #45 tab Metoprolol Tartrate [Lopressor] 50 mg PO BID #180 tab Magnesium Oxide [Mag-Ox] 400 mg PO DAILY tab Dofetilide [Tikosyn] 250 mcg PO Q12HR #180 cap Dofetilide [Tikosyn] 250 mcg PO Q12HR #14 cap Continue Apixaban [Eliquis] 5 mg PO BID #180 tab Cetirizine HCl [Zyrtec] 10 mg PO DAILY Tamsulosin [Flomax] 0.4 mg PO HS Albuterol Sulfate [Ventolin HFA] 2 puff INHALATION RT-QID PRN PRN Reason: Shortness Of Breath Atorvastatin [Lipitor] 40 mg PO HS #90 tablet Clopidogrel [Plavix] 75 mg PO HS Dapagliflozin Propanediol [Farxiga] 10 mg PO DAILY Discontinued Losartan [Cozaar] 25 mg PO DAILY Metoprolol Tartrate [Lopressor] 100 mg PO BID Discharge Medication List Tamsulosin [Flomax] 0.4 mg PO HS 10/01/22 [History] Albuterol Sulfate [Ventolin HFA] 2 puff INHALATION RT-QID PRN 03/01/23 [History] Apixaban [Eliquis] 5 mg PO BID #180 tab 03/04/23 [Rx] Atorvastatin [Lipitor] 40 mg PO HS #90 tablet 03/04/23 [Rx] Clopidogrel [Plavix] 75 mg PO HS 01/26/24 [History] Dapagliflozin Propanediol [Farxiga] 10 mg PO DAILY 01/26/24 [History] Cetirizine HCl [Zyrtec] 10 mg PO DAILY 06/19/24 [History] Dofetilide [Tikosyn] 250 mcg PO Q12HR #14 cap 06/23/24 [Rx] Dofetilide [Tikosyn] 250 mcg PO Q12HR #180 cap 06/23/24 [Rx] Losartan [Cozaar] 12.5 mg PO DAILY #45 tab 06/23/24 [Rx] Magnesium Oxide [Mag-Ox] 400 mg PO DAILY tab 06/23/24 [Rx] Metoprolol Tartrate [Lopressor] 50 mg PO BID #180 tab 06/23/24 [Rx] Follow up Appointment(s)/Referral(s): Kevin Barajas MD [Medical Doctor] - 1 Week Discharge Disposition: HOME SELF-CARE
[2024-06-23 16:04] VITALS: BP 128/79; PULSE 54
== END 2024-06-23 15:49 | disposition home or self-care (01) | DRG 309 ==
LOC: 3SCARD 10:25
PROVIDERS: ADMIT Internal Medicine Clinical Cardiac Electrophysiology; ATTEND Internal Medicine Clinical Cardiac Electrophysiology
DX: I48.19 Other persistent atrial fibrillation (principal); N17.9 Acute kidney failure, unspecified; I49.5 Sick sinus syndrome; J44.9 Chronic obstructive pulmonary disease, unspecified; E11.9 Type 2 diabetes mellitus without complications; I10 Essential (primary) hypertension; I48.3 Typical atrial flutter; I25.10 Atherosclerotic heart disease of native coronary artery without angina pectoris; E78.5 Hyperlipidemia, unspecified; I45.10 Unspecified right bundle-branch block; E87.5 Hyperkalemia; R00.1 Bradycardia, unspecified; Z79.01 Long term (current) use of anticoagulants; Z79.02 Long term (current) use of antithrombotics/antiplatelets; Z79.899 Other long term (current) drug therapy; Z82.49 Family history of ischemic heart disease and other diseases of the circulatory system; Z85.828 Personal history of other malignant neoplasm of skin; Z87.891 Personal history of nicotine dependence; Z95.5 Presence of coronary angioplasty implant and graft
CPT/HCPCS: 80048; 83735; 84443; 85025

== ENCOUNTER → 2024-07-26 | Outpatient (CLI) | payer MEDICARE ==
[2024-07-26 15:54] LABS: HCT 51.7 % (39.6-50.0); MCH 30.1 pg (27.0-32.0); MCHC 30.9 g/dL (32.0-37.0); MCV 97.4 FL (80.0-97.0); Mean Platelet Volume 11.6 FL (9.5-12.2); NRBC Per 100 WBC 0 X 10*3/uL (0.00-0.01); Platelet Count 156 X 10*3/uL (140-440); RBC 5.31 X 10*6/uL (4.40-5.60); RDW 13.3 % (11.5-14.5); WBC 6.84 X 10*3/uL (4.50-10.00)
[2024-07-26 16:13] LABS: Blood Urea Nitrogen 19.6 mg/dL (9.0-27.0); Carbon Dioxide 27.1 mmol/L (21.6-31.8); Chloride 103 mmol/L (96-109); Sodium 139 mmol/L (135-145)
== END | disposition home or self-care (01) ==
LOC: LABPAT 09:38
PROVIDERS: ATTEND Internal Medicine Clinical Cardiac Electrophysiology
DX: I48.92 Unspecified atrial flutter (principal)
CPT/HCPCS: 80051; 82565; 84520; 85027

== ENCOUNTER 2024-08-01 13:08 | Day surgery (SDC) | payer MEDICARE ==
[2024-08-01] MEDS: IV FLUID CONTINUATION 1,000 ML IV ONE (14:30)
[2024-08-01] MEDS: HEPARIN SODIUM,PORCINE 10,000 UNIT in SODIUM CHLORIDE 0.9% 1,000 ML IRRIGATION ONE ×2 (15:31→17:24)
[2024-08-01] MEDS: HEPARIN SODIUM (1,000 UNIT/ML) 1,000 UNIT in SODIUM CHLORIDE 0.9% 1,000 ML IRRIGATION ONE ×2 (15:31→17:24)
[2024-08-01] MEDS: LIDOCAINE 1% INJ 10MG/ML (20 ML MDV) SQ ONE ×2 (15:32→16:09)
[2024-08-01] MEDS ORDERED: SUCCINYLCHOLINE CHLORIDE 200 MG/10 ML VIAL IV ONE (15:45)
[2024-08-01] MEDS ORDERED: GLYCOPYRROLATE 0.2 MG/ML 2 ML VIAL ONE (15:45)
[2024-08-01] MEDS ORDERED: ROCURONIUM 10 MG/ML (5 ML VIAL) IV ONE (15:45)
[2024-08-01] MEDS ORDERED: PROPOFOL 10 MG/ML 20 ML VIAL IV ONE (15:45)
[2024-08-01] MEDS ORDERED: LIDOCAINE 1% INJ 10MG/ML (20 ML MDV) ONE (15:45)
[2024-08-01] MEDS ORDERED: NEOSTIGMINE 1 MG/ML 10 ML VIAL ONE (15:45)
[2024-08-01] MEDS ORDERED: fentaNYL (PF) 50 MCG/ML 2 ML AMP ONE (15:45)
[2024-08-01] MEDS ORDERED: ALBUTEROL NEBULIZED 2.5 MG/3 ML INHALATION PRN (17:42)
--- NOTE | 2024-08-01 17:52 | P.EPPROC ---
- EP Procedure Note Electrophysiology Procedure Note: Diagnosis Typical atrial flutter Status post A-fib ablation in the past along with dofetilide therapy 250 mcg twice daily Final diagnosis Typical atrial flutter Status post ablation with confirmed bidirectional block across the cavotricuspid isthmus Isthmus conduction time 160 ms Details Patient was brought to the EP lab in a fasting state. Written informed consent was obtained prior to the procedure. The right and left groins were prepped and draped as protocol. 1% like lidocaine was used for local anesthesia. The procedure performed under general anesthesia Venous sheaths were placed in the right left femoral veins and by these diagnostic mapping ablation catheter placed in the high right atrium His bundle area coronary sinus and low right atrium. Intracardiac echo was performed for 3D mapping. A VISI go sheath along with the mapping and ablation catheter were placed in the right heart NH interval 144 ms QRS 105 ms QT 438 ms in sinus cycle 60 ms AH 99 ms and HV interval 41 ms Sinus node recovery times was prolonged at pacing cycle length of 600 ms. Sinus node recovery time was 1786. Corrected sinus node recovery time was also prolonged AV node Wenckebach block 390 ms High-dose Isopril infused no atrial fibrillation induced RF ablation was performed of the cavotricuspid isthmus. A complete line of block was made. This line was interrogated with 3D mapping and differential pacing. Bidirectional block was confirmed All catheters removed sheaths were removed and hemostasis was assured
--- NOTE | 2024-08-01 17:58 | P.DS ---
Providers Attending physician: Ubaldo Dan Primary care physician: [facility] Course: Patient underwent an EP study and ablation for typical atrial flutter Successful atrial flutter was performed with bidirectional block No other arrhythmias were inducible on and off Isopril He is doing well postprocedure No chest discomfort dizziness lightheadedness Rhythm is regular Heart sounds are normal Groins have healed well no hematoma no swelling Final diagnosis Typical atrial flutter status post successful ablation History of atrial fibrillation, persistent status post A-fib ablation last January Currently on dofetilide 250 mcg twice daily with breakthrough episodes of atrial flutter Plan continue anticoagulation uninterrupted, especially for the next 2 months, to minimize the risk of stroke Continue dofetilide at the current dose Continue all other cardiac medications and follow-up with Dr. Dan in a week Patient Condition at Discharge: Stable Plan - Discharge Summary Discharge Rx Participant: No New Discharge Prescriptions: Continue RX: Apixaban [Eliquis] 5 mg PO BID #180 tab RX: Cetirizine HCl [Zyrtec] 10 mg PO DAILY RX: Metoprolol Tartrate [Lopressor] 50 mg PO BID #180 tab RX: Magnesium Oxide [Mag-Ox] 400 mg PO DAILY tab RX: Dofetilide [Tikosyn] 250 mcg PO Q12HR #180 cap RX: Tamsulosin [Flomax] 0.4 mg PO HS RX: Albuterol Sulfate [Ventolin HFA] 2 puff INHALATION RT-QID PRN PRN Reason: Shortness Of Breath RX: Atorvastatin [Lipitor] 40 mg PO HS #90 tablet RX: Clopidogrel [Plavix] 75 mg PO HS RX: Dapagliflozin Propanediol [Farxiga] 10 mg PO DAILY Discharge Medication List RX: Tamsulosin [Flomax] 0.4 mg PO HS 10/01/22 [History] RX: Albuterol Sulfate [Ventolin HFA] 2 puff INHALATION RT-QID PRN 03/01/23 [History] RX: Apixaban [Eliquis] 5 mg PO BID #180 tab 03/04/23 [Rx] RX: Atorvastatin [Lipitor] 40 mg PO HS #90 tablet 03/04/23 [Rx] RX: Clopidogrel [Plavix] 75 mg PO HS 01/26/24 [History] RX: Dapagliflozin Propanediol [Farxiga] 10 mg PO DAILY 01/26/24 [History] RX: Cetirizine HCl [Zyrtec] 10 mg PO DAILY 06/19/24 [History] RX: Dofetilide [Tikosyn] 250 mcg PO Q12HR #180 cap 06/23/24 [Rx] RX: Magnesium Oxide [Mag-Ox] 400 mg PO DAILY tab 06/23/24 [Rx] RX: Metoprolol Tartrate [Lopressor] 50 mg PO BID #180 tab 06/23/24 [Rx] Follow up Appointment(s)/Referral(s): Ubaldo Dan MD [STAFF PHYSICIAN] - 1 Week (Office will call with follow up appointment date and time.) Patient Instructions/Handouts: Cardiac Ablation (DC) Activity/Diet/Wound Care/Special Instructions: Post EP study - Ablation instructions 1. Keep access sites dry for 2 days. 2. No heavy lifting or straining for 2 days. 3. Avoid bending the hips repeatedly for 2 days. 4. You may go up and down stairs slowly 5. If you have had an ablation for atrial fibrillation or atrial flutter and are on a blood thinner, do not stop the blood thinner even temporarily for 3 months post ablation Call if the following is noted 1. Bleeding, increasing swelling or pain at the access sites. 2. Increasing chest discomfort, especially upon taking a deep breath. 3. Increasing shortness of breath, at rest or with exertion. 4. Undue cough / phlegm 5. Difficulty or pain while swallowing. 6. Pain or change in color in the extremities. 7. Fever, chills, rigors. 8. Increasing headache or neurologic symptoms. 9. Dizziness, fainting, palpitations For patients who have undergone an A-fib ablation /atrial flutter ablation Strict instruction; do NOT stop anticoagulation (Eliquis/Xarelto/Pradaxa) for the next 2 months temporarily, for any elective, nonurgent surgery. This increases the risk of stroke, post A-fib ablation Discharge Disposition: HOME SELF-CARE
[2024-08-01] MEDS ORDERED: ACETAMINOPHEN TAB 325 MG TAB PO PRN (18:35)
[2024-08-01] MEDS: SODIUM CHLORIDE 0.9% 1,000 ML IV SCH (19:43)
[2024-08-01] MEDS: LACTATED RINGERS 1,000 ML IV SCH (19:43)
[2024-08-01] MEDS: CLOPIDOGREL 75 MG TAB PO SCH (19:54)
[2024-08-01] MEDS: TAMSULOSIN 0.4 MG CAP.ER.24H PO SCH (19:55)
[2024-08-01] MEDS: DOFETILIDE 250 MCG CAP PO SCH (19:55)
[2024-08-01] MEDS: APIXABAN 5 MG TAB PO SCH (19:55)
[2024-08-01] MEDS: ACETAMINOPHEN IV (For NPO) 1,000 MG in EMPTY BAG 1 BAG IVPB ONE (19:56)
[2024-08-01] MEDS: METOPROLOL TARTRATE 50 MG TAB PO SCH (22:14)
[2024-08-02] MEDS: DAPAGLIFLOZIN PROPANEDIOL 10 MG TABLET PO SCH (07:52)
[2024-08-02] MEDS: MAGNESIUM OXIDE 400 MG TAB PO SCH (07:52)
[2024-08-02 08:16] VITALS: BP 133/76; PULSE 58; RESP 16; TEMP 97.9
== END 2024-08-02 10:07 | disposition home or self-care (01) ==
LOC: CATHEP 13:08 → 6NMEDSUR 17:32 → CATHEP 08-02 10:07
PROVIDERS: ATTEND Internal Medicine Clinical Cardiac Electrophysiology
DX: I48.3 Typical atrial flutter (principal); I48.19 Other persistent atrial fibrillation; I49.5 Sick sinus syndrome; I25.10 Atherosclerotic heart disease of native coronary artery without angina pectoris; Z95.5 Presence of coronary angioplasty implant and graft; I12.9 Hypertensive chronic kidney disease with stage 1 through stage 4 chronic kidney disease, or unspecified chronic kidney disease; N18.30 Chronic kidney disease, stage 3 unspecified; I44.1 Atrioventricular block, second degree; Z79.01 Long term (current) use of anticoagulants; Z79.84 Long term (current) use of oral hypoglycemic drugs; Z79.02 Long term (current) use of antithrombotics/antiplatelets; Z79.899 Other long term (current) drug therapy; Z82.49 Family history of ischemic heart disease and other diseases of the circulatory system
CPT/HCPCS: 93623; 93653; 86900; 86901; 83735; 86850; C1759; C1894; C1769; C1766; C1760 ×2; C1730; C1732; J0330; J1644 ×2; J2710; J2003; J3010; J0131; J2704; J1596